=== PATIENT | female | born 1990 | race African-American/Black ===

== ENCOUNTER 2017-09-06 16:50 | Inpatient (IN) | payer MEDICARE, MEDICAID ==
[~2017-09-06] VITALS: Ht 157.5 cm; Wt 67.6 kg
[~2017-09-06 16:50] MED LIST: LATU80TA PO
[2017-09-06 16:59] VITALS: BP 134/83; PULSE 100; RESP 16; TEMP 98; O2SAT 100
--- NOTE | 2017-09-06 18:14 | PD ---
HPI Chief Complaint: Psychiatric Symptoms Time Seen by Provider: 17:27 Travel History International Travel<30 days: No Contact w/Intl Traveler<30days: No Traveled to known affect area: No History of Present Illness HPI Family brings the patient to the emergency department because her concern that she has not been taking her medication for the past 2 months for her schizophrenia. And that is causing her to be expressing herself online and ways that they are not accustomed to seeing from her. The family members brought a snapshot of her webpage in which she was stating "should I go ahead and sleep with everyone without having any feelings" with them, although she does not especially have any suicidal or homicidal ideation but has scattered thought processes. Particularly about conception as she is wondering if that is her true purpose in life. PFSH Past Medical History Asthma: Yes Diminished Hearing: No ?: Unknown : 0 Past Surgical History Surgical History: No Previous Surgery Social History Alcohol Use: Yes (OCC) Tobacco Use: No Substance Use: No Allergies-Medications (Allergen,Severity, Reaction): Coded Allergies: No Known Allergies (Unverified Allergy, Unknown, 09/07/17) Reported Meds & Prescriptions Reported Meds & Active Scripts Active Reported Abilify (Aripiprazole) 2 Mg Tab 2 Mg PO DAILY Seroquel (Quetiapine Fumarate) 25 Mg Tab 25 Mg PO BID Review of Systems General / Constitutional: No: Fever Eyes: No: Visual changes HENT: No: Headaches Cardiovascular: No: Chest Pain or Discomfort Respiratory: No: Shortness of Breath Gastrointestinal: No: Abdominal Pain Genitourinary: No: Dysuria Musculoskeletal: No: Pain Skin: No Rash Neurologic: No: Weakness Psychiatric: Positive: Disorder of Thought Endocrine: No: Polydipsia Hematologic/Lymphatic: No: Easy Bruising Physical Exam Narrative GENERAL: SKIN: Warm and dry. HEAD: Atraumatic. Normocephalic. EYES: Pupils equal and round. No scleral icterus. No injection or drainage. ENT: No nasal bleeding or discharge. Mucous membranes pink and moist. NECK: Trachea midline. No JVD. CARDIOVASCULAR: Regular rate and rhythm. RESPIRATORY: No accessory muscle use. Clear to auscultation. Breath sounds equal bilaterally. GASTROINTESTINAL: Abdomen soft, non-tender, nondistended. Hepatic and splenic margins not palpable. MUSCULOSKELETAL: Extremities without clubbing, cyanosis, or edema. No obvious deformities. NEUROLOGICAL: Awake and alert. No obvious cranial nerve deficits. Motor grossly within normal limits. Five out of 5 muscle strength in the arms and legs. Normal speech. PSYCHIATRIC: scattered thought process... Data Data Last Documented VS Vital Signs Date Time Temp Pulse Resp B/P (MAP) Pulse Ox O2 Delivery O2 Flow Rate FiO2 09/07/17 07:54 76 15 118/74 (89) 100 Room Air 09/06/17 16:59 98.0 Orders Orders Complete Blood Count With Diff (09/06/17 17:59) Comprehensive Metabolic Panel (09/06/17 17:59) Thyroid Stimulating Hormone (09/06/17 17:59) Basic Metabolic Panel (Bmp) (09/06/17 17:59) Urinalysis - C+S If Indicated (09/06/17 17:59) Ed Urine Pregnancytest Poc (09/06/17 17:59) Psych Screen (09/06/17 17:59) Drug Screen, Random Urine (09/06/17 17:59) Alcohol (Ethanol) (09/06/17 17:59) Diet Regular Basic (09/07/17 Breakfast) Aripiprazole (Abilify) (09/07/17 11:30) Quetiapine (Seroquel) (09/07/17 11:30) Admit Order (Ed Use Only) (09/07/17 ) Admit To Inpatient Psych (09/07/17 ) Vital Signs (Adult) MALINI.Q12H.E (09/07/17 11:45) Activity Oob Ad Karla (09/07/17 11:45) Level Of Observation (Psych) (09/07/17 11:45) Diet Regular Basic (09/07/17 Lunch) Acetaminophen (Tylenol) (09/07/17 11:45) Magnesium Hydroxide Liq (Milk Of Magnesi (09/07/17 11:45) Al-Mag Hy-Si 40-40-4 Mg/Ml Liq (Mag-Al P (09/07/17 11:45) Basic Metabolic Panel (Bmp) (09/08/17 06:00) Lipid Profile (09/08/17 06:00) Hemoglobin (Hgb) A1c (09/08/17 06:00) Labs Laboratory Tests Test 09/06/17 19:00 09/06/17 20:55 Urine Color YELLOW Urine Turbidity CLEAR Urine pH 7.0 Urine Specific [place] 1.035 Urine Protein 30 mg/dL Urine Glucose (UA) NEG mg/dL Urine Ketones NEG mg/dL Urine Occult Blood NEG Urine Nitrite NEG Urine Bilirubin NEG Urine Urobilinogen LESS THAN 2.0 MG/DL Urine Leukocyte Esterase NEG Urine RBC 1 /hpf Urine WBC 1 /hpf Urine Squamous Epithelial Cells 3 /hpf Urine Amorphous Sediment RARE Urine Mucus MANY /lpf Microscopic Urinalysis Comment CULT NOT INDICATED Urine Opiates Screen NEG Urine Barbiturates Screen NEG Urine Amphetamines Screen NEG Urine Benzodiazepines Screen NEG Urine Cocaine Screen NEG Urine Cannabinoids Screen NEG White Blood Count 10.7 TH/MM3 Red Blood Count 5.51 MIL/MM3 Hemoglobin 9.3 GM/DL Hematocrit 30.9 % Mean Corpuscular Volume 56.1 FL Mean Corpuscular Hemoglobin 17.0 PG Mean Corpuscular Hemoglobin Concent 30.2 % Red Cell Distribution Width 22.9 % Platelet Count 348 TH/MM3 Mean Platelet Volume 8.6 FL Neutrophils (%) (Auto) 86.8 % Lymphocytes (%) (Auto) 6.4 % Monocytes (%) (Auto) 5.7 % Eosinophils (%) (Auto) 0.5 % Basophils (%) (Auto) 0.6 % Neutrophils # (Auto) 9.3 TH/MM3 Lymphocytes # (Auto) 0.7 TH/MM3 Monocytes # (Auto) 0.6 TH/MM3 Eosinophils # (Auto) 0.1 TH/MM3 Basophils # (Auto) 0.1 TH/MM3 CBC Comment DIFF FINAL Differential Comment Blood Urea Nitrogen 10 MG/DL Creatinine 0.79 MG/DL Random Glucose 73 MG/DL Total Protein 9.4 GM/DL Albumin 4.1 GM/DL Calcium Level 9.4 MG/DL Alkaline Phosphatase 83 U/L Aspartate Amino Transf (AST/SGOT) 19 U/L Alanine Aminotransferase (ALT/SGPT) 14 U/L Total Bilirubin 0.3 MG/DL Sodium Level 140 MEQ/L Potassium Level 3.3 MEQ/L Chloride Level 106 MEQ/L Carbon Dioxide Level 23.5 MEQ/L Anion Gap 11 MEQ/L Estimat Glomerular Filtration Rate 106 ML/MIN Thyroid Stimulating Hormone 3rd Gen 1.360 uIU/ML Ethyl Alcohol Level LESS THAN 3 MG/DL MDM Medical Decision Making Medical Screen Exam Complete: Yes Emergency Medical Condition: Yes Medical Record Reviewed: Yes Differential Diagnosis hypoglycemia v electrolyte imbalance v anemia v thyroid abnl Narrative Course Patient agrees to stay as a voluntary, family members at bedside are also okay with the patient stating as a voluntary, as they want her to receive some help in restarting her medications and possibly someone to follow-up with for further adjustments of her medications. UA is negative for any UTI evidence Tox screen negative Diagnosis Primary Impression: medically cleared Kareem Carlson MD Sep 06, 2017 18:14
[2017-09-06 20:44] LABS: AMORPHOUS SEDIMENT, URINE RARE; BILIRUBIN, URINE NEG (NEG); BLOOD, URINE NEG (NEG); GLUCOSE,URINE NEG (NEG); KETONE, URINE NEG (NEG); MUCUS URINE MANY /lpf (OCC); NITRITE,URINE NEG (NEG); SQUAMOUS EPITHELIAL CELL URINE 3 /hpf (0-5); URINE COLOR YELLOW (YELLW/STRAW); URINE LEUKOCYTE ESTERASE NEG (NEG)
[2017-09-06 22:05] LABS: AUTOMATED NEUTROPHIL # 9.3 TH/MM3 (1.8-7.7); BASOPHIL # 0.1 TH/MM3 (0-0.2); BASOPHIL % 0.6 % (0.0-2.0); EOSINOPHIL # 0.1 TH/MM3 (0-0.4); EOSINOPHIL % 0.5 % (0.0-4.0); HEMATOCRIT 30.9 % (35.0-46.0); HEMOGLOBIN 9.3 GM/DL (11.6-15.3); LYMPH % 6.4 % (9.0-44.0); LYMPHOCYTE # 0.7 TH/MM3 (1.0-4.8); MEAN CELL VOLUME 56.1 FL (80.0-100.0); MEAN CORPUSCULAR HGB CONC 30.2 % (32.0-36.0); MEAN PLATELET VOLUME 8.6 FL (7.0-11.0); MONO % 5.7 % (0.0-8.0); MONOCYTE # 0.6 TH/MM3 (0-0.9); NEUT % 86.8 % (16.0-70.0); PLATELET COUNT 348 TH/MM3 (150-450); RED BLOOD COUNT 5.51 MIL/MM3 (4.00-5.30); RED CELL DISTRIBUTION WIDTH 22.9 % (11.6-17.2); WHITE BLOOD COUNT 10.7 TH/MM3 (4.0-11.0)
[2017-09-06 22:09] LABS: ALBUMIN 4.1 GM/DL (3.4-5.0); AST (GOT) 19 U/L (15-37); BICARBONATE 23.5 MEQ/L (21.0-32.0); CALCIUM 9.4 MG/DL (8.5-10.1); CHLORIDE 106 MEQ/L (98-107); CREATININE 0.79 MG/DL (0.50-1.00); GLOMERULAR FILTRATION RATE 106 ML/MIN (>89); GLUCOSE,RANDOM 73 MG/DL (74-106); SODIUM (NA) 140 MEQ/L (136-145)
[2017-09-06 22:10] LABS: BLOOD UREA NITROGEN 10 MG/DL (7-18)
[2017-09-06 22:18] LABS: ALKALINE PHOSPHATASE 83 U/L (45-117); ALT (GPT) 14 U/L (10-53); TOTAL BILIRUBIN ADULT 0.3 MG/DL (0.2-1.0); TOTAL PROTEIN 9.4 GM/DL (6.4-8.2)
[2017-09-07] MEDS ORDERED: SERO25TA PO (02:32)
[2017-09-07] MEDS ORDERED: ARIP2 PO (02:32)
[2017-09-07 07:54] VITALS: BP 118/74; PULSE 76; RESP 15; O2SAT 100
[2017-09-07] MEDS ORDERED: ARIPiprazole 2 MG TAB PO ONE (11:30)
[2017-09-07] MEDS: QUEtiapine FUMARATE 25 MG TAB PO ONE ×2 (11:30→12:28)
[2017-09-07] MEDS ORDERED: MAGNESIUM HYDROXIDE SUSP 30 ML CUP PO PRN (11:45)
[2017-09-07] MEDS ORDERED: ALUMINUM/MAGNESIUM/SIMETH 30 ML CUP PO PRN (11:45)
[2017-09-07] MEDS ORDERED: ACETAMINOPHEN 325 MG TAB PO PRN (11:45)
--- NOTE | 2017-09-07 11:45 | PD ---
History of Present Illness Chief Complaint: Schizophrenia Time Seen by Provider: 11:00 Travel History International Travel<30 Days: No Contact w/Intl Traveler<30days: No Known affected area: No Legal Status Legal Status: Voluntary History of Present Illness: This is a 26-year-old, single, -[place] female who was brought to this facility by her family he reports noncompliance with medication and concerning behaviors. Patient has been seen at this facility in the past however, she is typically managed at [facility]. Reviewed electronic medical record, labs, and discuss with staff. Patient was evaluated in her room in the main ED. Her sister was present per the patient's request. Patient found awake, alert, and oriented to self and place only. Her speech is clear and disorganized. She shows signs of internal stimulation and racing thoughts. She is a poor historian at this point as her thought process is tangential and disorganized. She went off on a tangent regarding the various definitions of cursing during the interview. Reproducing and his sexual activities seem to be a preoccupation at this time. Patient expresses some paranoia towards her family, and people on Facebook. Per the sister, patient was with her father who is her caregiver. Sister reports she was recently on long-acting injections but had begun to gain weight. Her father then advised that they could put her on pills and he would make sure that she checks them. They believe patient has been off of her medications for approximately 1 month now. They began noting bizarre comments on her Facebook page, she stopped sleeping, her appetite decreased, and she has been showing some paranoid delusions. The patient also reports some visual distortion saying that "the building look different, I thought we had to enter through the door further down". She denies any thoughts of self-harm, homicidal ideation, auditory hallucinations. However, there did appear to be some thought blocking present. Patient is pleasant and attempts to be cooperative with the evaluation however, she has trouble focusing long enough to answer questions appropriately. PFSH Past Medical History Asthma: Yes Diminished Hearing: No ?: Unknown : 0 Past Surgical History Surgical History: No Previous Surgery Psychiatric History Psychiatric History Inpatient admission at [facility]. Follows up outpatient at [facility]. Hx Psychiatric Treatment: DX WITH SCHIZOPHRENIA AT AGE 21. ADMITTED TO [facility] ONE, WAS UNABLE TO SAY WHEN BUT WAS THERE ABOUT A WEEK, VOLUNTARILY. REPORTS THAT SHE HAS NOT TAKING HER PRESCRIBED MEDS FOR 2-3 MONTHS. LIZ PHAM NP AN OUTPATIENT History of Inpatient Treatment: Yes Guns or firearms in home: No Social History Denies smoking tobacco, drinking alcohol and using illicit substances. Hx Alcohol Use: Yes (OCC) Hx Tobacco Use: No Hx Substance Use: No Hx of Substance Use Treatment: No Allergies-Medications (Allergen,Severity, Reaction): Coded Allergies: No Known Allergies (Unverified Adverse Reaction, Unknown, 09/06/17) Reported Meds & Prescriptions Reported Meds & Active Scripts Active Reported Abilify (Aripiprazole) 2 Mg Tab 2 Mg PO DAILY Seroquel (Quetiapine Fumarate) 25 Mg Tab 25 Mg PO BID Mental Status Examination Appearance: Appropriate, Well dressed/well groomed Consciousness: Alert Orientation: Person, Place (At least) Motor Activity: Other (Sitting on the stretcher) Speech: Rapid, Hesitant Language: Adequate Fund of Knowledge: Inadequate Attention and Concentration: Easily Distracted Memory: Impaired Mood: Appropriate, Good Affect: Flat Thought Process & Associations: Loose associations, Tangential Thought Content: Bizarre thinking, Thought blocking, Preoccupations (With reproducing), Delusional Hallucination Type: Auditory (Denies but appears to be internally stimulated with some possible thought blocking), Visual (Reports distortion buildings) Delusion Type: Paranoid (Believes people are posting derogatory things aimed at her on Facebook) Suicidal Ideation: No (There was a Facebook, that patient wrote in reference to her .) Suicidal Plan: No Suicidal Intention: No Homicidal Ideation: No Homicidal Plan: No Homicidal Intention: No Insight: Poor Judgment: Poor MDM Medical Decision Making Medical Record Reviewed: Yes Assessment/Plan This is a 26-year-old, single, -[place] female who is brought in by her family for being off of her medication and acting bizarre. Patient does have a history of schizophrenia and is treated outpatient at [facility]. Per her sister, patient has not taken her medications for approximately 1 month. She had been on a long-acting injectable but this is her states she began gaining weight and was put back on oral medications. Patient's thought processes clearly disorganized, tangential, and she is exhibiting signs of paranoid delusions. She reports that she has not been sleeping, her appetite has been decreased, and she has been experiencing visual distortions. She denies having suicidal ideation however, in a recent post on [employer] she did reference her . Patient does meet inpatient criteria at this time as she does not have the capacity to care for herself. If discharged I believe there is likelihood that she could be an imminent danger to herself. She will be admitted to the 2600 unit for further evaluation and stabilization. Orders Orders Complete Blood Count With Diff (09/06/17 17:59) Comprehensive Metabolic Panel (09/06/17 17:59) Thyroid Stimulating Hormone (09/06/17 17:59) Basic Metabolic Panel (Bmp) (09/06/17 17:59) Urinalysis - C+S If Indicated (09/06/17 17:59) Ed Urine Pregnancytest Poc (09/06/17 17:59) Psych Screen (09/06/17 17:59) Drug Screen, Random Urine (09/06/17 17:59) Alcohol (Ethanol) (09/06/17 17:59) Diet Regular Basic (09/07/17 Breakfast) Aripiprazole (Abilify) (09/07/17 11:30) Quetiapine (Seroquel) (09/07/17 11:30) Results Vital Signs Date Time Temp Pulse Resp B/P (MAP) Pulse Ox O2 Delivery O2 Flow Rate FiO2 09/07/17 07:54 76 15 118/74 (89) 100 Room Air 09/06/17 16:59 98.0 100 16 134/83 (100) 100 Laboratory Tests Test 09/06/17 19:00 09/06/17 20:55 Urine Color YELLOW Urine Turbidity CLEAR Urine pH 7.0 Urine Specific [place] 1.035 Urine Protein 30 Urine Glucose (UA) NEG Urine Ketones NEG Urine Occult Blood NEG Urine Nitrite NEG Urine Bilirubin NEG Urine Urobilinogen LESS THAN 2.0 Urine Leukocyte Esterase NEG Urine RBC 1 Urine WBC 1 Urine Squamous Epithelial Cells 3 Urine Amorphous Sediment RARE Urine Mucus MANY Microscopic Urinalysis Comment CULT NOT INDICATED Urine Opiates Screen NEG Urine Barbiturates Screen NEG Urine Amphetamines Screen NEG Urine Benzodiazepines Screen NEG Urine Cocaine Screen NEG Urine Cannabinoids Screen NEG White Blood Count 10.7 Red Blood Count 5.51 Hemoglobin 9.3 Hematocrit 30.9 Mean Corpuscular Volume 56.1 Mean Corpuscular Hemoglobin 17.0 Mean Corpuscular Hemoglobin Concent 30.2 Red Cell Distribution Width 22.9 Platelet Count 348 Mean Platelet Volume 8.6 Neutrophils (%) (Auto) 86.8 Lymphocytes (%) (Auto) 6.4 Monocytes (%) (Auto) 5.7 Eosinophils (%) (Auto) 0.5 Basophils (%) (Auto) 0.6 Neutrophils # (Auto) 9.3 Lymphocytes # (Auto) 0.7 Monocytes # (Auto) 0.6 Eosinophils # (Auto) 0.1 Basophils # (Auto) 0.1 CBC Comment DIFF FINAL Differential Comment Blood Urea Nitrogen 10 Creatinine 0.79 Random Glucose 73 Total Protein 9.4 Albumin 4.1 Calcium Level 9.4 Alkaline Phosphatase 83 Aspartate Amino Transf (AST/SGOT) 19 Alanine Aminotransferase (ALT/SGPT) 14 Total Bilirubin 0.3 Sodium Level 140 Potassium Level 3.3 Chloride Level 106 Carbon Dioxide Level 23.5 Anion Gap 11 Estimat Glomerular Filtration Rate 106 Thyroid Stimulating Hormone 3rd Gen 1.360 Ethyl Alcohol Level LESS THAN 3 Diagnosis Primary Impression: Schizophrenia Admitting Information Admitting Physician Requests: Admit aJnnette Boateng Sep 07, 2017 11:45
[2017-09-07 12:31] VITALS: BP 132/79; PULSE 83; RESP 15; O2SAT 100
--- NOTE | 2017-09-07 14:26 | PD ---
Data Data Last Documented VS Vital Signs Date Time Temp Pulse Resp B/P (MAP) Pulse Ox O2 Delivery O2 Flow Rate FiO2 09/07/17 07:54 76 15 118/74 (89) 100 Room Air 09/06/17 16:59 98.0 Orders Orders Complete Blood Count With Diff (09/06/17 17:59) Comprehensive Metabolic Panel (09/06/17 17:59) Thyroid Stimulating Hormone (09/06/17 17:59) Basic Metabolic Panel (Bmp) (09/06/17 17:59) Urinalysis - C+S If Indicated (09/06/17 17:59) Ed Urine Pregnancytest Poc (09/06/17 17:59) Psych Screen (09/06/17 17:59) Drug Screen, Random Urine (09/06/17 17:59) Alcohol (Ethanol) (09/06/17 17:59) Diet Regular Basic (09/07/17 Breakfast) Aripiprazole (Abilify) (09/07/17 11:30) Quetiapine (Seroquel) (09/07/17 11:30) Admit Order (Ed Use Only) (09/07/17 ) Admit To Inpatient Psych (09/07/17 ) Vital Signs (Adult) MALINI.Q12H.E (09/07/17 11:45) Activity Oob Ad Karla (09/07/17 11:45) Level Of Observation (Psych) (09/07/17 11:45) Diet Regular Basic (09/07/17 Lunch) Acetaminophen (Tylenol) (09/07/17 11:45) Magnesium Hydroxide Liq (Milk Of Magnesi (09/07/17 11:45) Al-Mag Hy-Si 40-40-4 Mg/Ml Liq (Mag-Al P (09/07/17 11:45) Basic Metabolic Panel (Bmp) (09/08/17 06:00) Lipid Profile (09/08/17 06:00) Hemoglobin (Hgb) A1c (09/08/17 06:00) Labs Laboratory Tests Test 09/06/17 19:00 09/06/17 20:55 Urine Color YELLOW Urine Turbidity CLEAR Urine pH 7.0 Urine Specific [place] 1.035 Urine Protein 30 mg/dL Urine Glucose (UA) NEG mg/dL Urine Ketones NEG mg/dL Urine Occult Blood NEG Urine Nitrite NEG Urine Bilirubin NEG Urine Urobilinogen LESS THAN 2.0 MG/DL Urine Leukocyte Esterase NEG Urine RBC 1 /hpf Urine WBC 1 /hpf Urine Squamous Epithelial Cells 3 /hpf Urine Amorphous Sediment RARE Urine Mucus MANY /lpf Microscopic Urinalysis Comment CULT NOT INDICATED Urine Opiates Screen NEG Urine Barbiturates Screen NEG Urine Amphetamines Screen NEG Urine Benzodiazepines Screen NEG Urine Cocaine Screen NEG Urine Cannabinoids Screen NEG White Blood Count 10.7 TH/MM3 Red Blood Count 5.51 MIL/MM3 Hemoglobin 9.3 GM/DL Hematocrit 30.9 % Mean Corpuscular Volume 56.1 FL Mean Corpuscular Hemoglobin 17.0 PG Mean Corpuscular Hemoglobin Concent 30.2 % Red Cell Distribution Width 22.9 % Platelet Count 348 TH/MM3 Mean Platelet Volume 8.6 FL Neutrophils (%) (Auto) 86.8 % Lymphocytes (%) (Auto) 6.4 % Monocytes (%) (Auto) 5.7 % Eosinophils (%) (Auto) 0.5 % Basophils (%) (Auto) 0.6 % Neutrophils # (Auto) 9.3 TH/MM3 Lymphocytes # (Auto) 0.7 TH/MM3 Monocytes # (Auto) 0.6 TH/MM3 Eosinophils # (Auto) 0.1 TH/MM3 Basophils # (Auto) 0.1 TH/MM3 CBC Comment DIFF FINAL Differential Comment Blood Urea Nitrogen 10 MG/DL Creatinine 0.79 MG/DL Random Glucose 73 MG/DL Total Protein 9.4 GM/DL Albumin 4.1 GM/DL Calcium Level 9.4 MG/DL Alkaline Phosphatase 83 U/L Aspartate Amino Transf (AST/SGOT) 19 U/L Alanine Aminotransferase (ALT/SGPT) 14 U/L Total Bilirubin 0.3 MG/DL Sodium Level 140 MEQ/L Potassium Level 3.3 MEQ/L Chloride Level 106 MEQ/L Carbon Dioxide Level 23.5 MEQ/L Anion Gap 11 MEQ/L Estimat Glomerular Filtration Rate 106 ML/MIN Thyroid Stimulating Hormone 3rd Gen 1.360 uIU/ML Ethyl Alcohol Level LESS THAN 3 MG/DL [facility] Supervised Visit with JOHN: Yes Narrative Course I was asked to see this patient for evaluation for possible Hopkins act, the patient initially presented for voluntary with her sister for admission for history of schizophrenia. She was to be admitted but on intake it was thought that the patient did not have an adequate understanding of her disease and therefore could not sign her own admission. On my examination the patient is very withdrawn, she states "I have problems because I have the mind of a child and an adult and I do not know what age I am supposed to talk to." The patient seems to be preoccupied on age and is asked me what my ages several times. She is highly tangential and difficult to stay on task. Very disorganized thought process. I agree I do not think that the patient has an adequate understanding of her disease process to sign involuntarily at this time. I do believe she is greatly disabled based on what her sister is told me about her low functioning at home. I have therefore determined that this patient meets Hopkins act criteria and I filled out the appropriate documentation. She is medically cleared for psychiatric admission and will be moved to the psychiatric burden under the psychiatric physicians care Diagnosis Primary Impression: Schizophrenia Admitting Information Admitting Physician Requests: Admit Condition: Stable Rodger Rosario MD Sep 07, 2017 14:26
[2017-09-07 15:16] VITALS: BP 155/90; PULSE 133; RESP 20; TEMP 97.8; O2SAT 100
[2017-09-08 06:21] VITALS: BP 139/75; PULSE 109; RESP 18; TEMP 97.5
--- NOTE | 2017-09-08 09:54 | HHI.HP ---
Provisional Diagnosis Admission Date Sep 07, 2017 at 11:48 Mobile I. 1. Schizophrenia, paranoid type, acute exacerbation Mobile II. Deferred Certification of Person's Competence To Provide Express and Informed Consent I have personally examined Paty Mchugh , a person being served at [facility] on, Sep 08, 2017 09:54. Express and informed consent means consent voluntarily given in writing, by a competent person, after sufficient explanation and disclosure of the subject matter involved to enable the person to make a knowing and willful decision without any element of force, fraud, deceit, duress, or other form of constraint or coercion. This person is 18 years of age or older, is not now known to be incompetent to consent to treatment with a guardian advocate, and does not have a health care surrogate or proxy currently making medical treatment decisions. I have found this person to be one of the following: [] Competent to provide express and informed consent, as defined above, for voluntary admission to this facility and is competent to provide express and informed consent for treatment. He/she has the consistent capacity to make well reasoned, willful, and knowing decisions concerning his or her medical or mental health treatment. The person fully and consistently understands the purpose of the admission for examination/placement and is fully capable of personally exercising all rights assured [place] [x] Incompetent to provide express and informed consent to voluntary admission, and this is incompetent to provide express and informed consent to treatment. The person must be transferred to involuntary status and a petition for a guardian advocate filed with the Circuit Court. [] Refusing to provide express and informed consent to voluntary admission but is competent to provide express and informed consent for treatment. The person must be discharged or transferred to involuntary status. Form shall be completed within 24 hours of a person's arrival at the receiving facility and filed in the clinical record of each person: 1. Admitted on a voluntary basis 2. Permitted to provide express and informed consent to his/her own treatment 3. Allowed to transfer from involuntary to voluntary status 4. Prior to permitting a person to consent to his or her own treatment after having been previously found incompetent to consent to treatment. History of Present Illness Capacity: Lacks Capacity Psych Chief Complaint: Psychosis HPI Ms. Mchugh is a 26-year-old female with a history of schizophrenia who was brought into the emergency department by family out of concern for medication nonadherence and decompensated psychosis. She was placed under a Hopkins act by the ED provider. She was seen in consultation by the psychiatric nurse practitioner in the ED. Documentation reviewed. Reviewing the electronic medical record, I see no previous psychiatric contact within our system. Patient seen and examined with nurse. Chart reviewed. Case discussed with nursing staff. On my examination today, the patient presents as disheveled. Speech is significantly delayed with obvious thought blocking. Eye contact is poor. She is paranoid and says that she does not want to give out too much information. She is evasive when I ask about SI/HI, saying "not really" and declining to elaborate when asked. Likewise, when I ask about AVH, she evades the question, noting "you're going to keep me longer." She appears frankly internally stimulated. Affect is quite flat. No reported depressive or hypomanic/manic symptoms. Psychiatric interview is limited because of decompensated psychotic illness. Patient is unable to provide any meaningful past psychiatric, family, chemical dependency or social history for the same reason. She does not verbalize any acute physical complaints. Given the patient's degree of psychiatric impairment, I did endeavor to obtain collateral from her father Cisco at the number listed in the EMR. He notes that he is not as well versed in patient's mental illness as his daughter Edith, patient's sister. He requests that I speak with Edith and defers HCS role to Eidth. I tried several times to reach Edith at number listed in EMR, which father assures me is the right number. This number keeps ringing until it finally disconnects on its own. There is no opportunity to leave a voicemail. Review of Systems ROS Limitations: Psychotic, Poor Historian Except as stated in HPI: all other systems reviewed are Neg Past Family Social History Coded Allergies: No Known Allergies (Unverified Allergy, Unknown, 09/07/17) Past Medical History See EMR. Reported Medications Aripiprazole (Abilify) 2 Mg Tab, 2 MG PO DAILY, #30 TAB 0 Refills 09/07/17 Quetiapine (Seroquel) 25 Mg Tab, 25 MG PO BID, #60 TAB 0 Refills 09/07/17 Discontinued Reported Medications Lurasidone Hcl (Latuda) 80 Mg Tab, 80 MG PO DAILY, TAB 11/25/13 Current Medications Medications (Trade) Dose Ordered Sig/Jojo Route Start Time Stop Time Status Last Admin (Tylenol) 650 mg Q4H PRN PO 09/07/17 11:45 09/07/17 21:33 (Milk Of Magnesia Liq) 30 ml DAILY PRN PO 09/07/17 11:45 (Mag-Al Plus Susp Liq) 30 ml Q6H PRN PO 09/07/17 11:45 Patient's Strengths (min. 2) In a monitored setting. Verbally fluent. Physical Exam Physical exam completed by ED provider. On my examination today, patient appears to be in no acute physical distress. No motor abnormalities noted. No posturing, no stereotypies, no other signs of catatonia. Labs and vitals reviewed: Vital Signs Vital Signs Date Time Temp Pulse Resp B/P (MAP) Pulse Ox O2 Delivery O2 Flow Rate FiO2 09/08/17 06:21 97.5 109 18 139/75 (96) 09/07/17 15:16 100 09/07/17 12:31 Room Air Lab Results Item Value Date Time White Blood Count 10.7 TH/MM3 09/06/172054 Hemoglobin 9.3 GM/DL L 09/06/172054 Platelet Count 348 TH/MM3 09/06/172054 Mean Corpuscular Volume 56.1 FL L 09/06/172054 Sodium Level 140 MEQ/L 09/06/172054 Potassium Level 3.3 MEQ/L L 09/06/172054 Chloride Level 106 MEQ/L 09/06/172054 Carbon Dioxide Level 23.5 MEQ/L 09/06/172054 Blood Urea Nitrogen 10 MG/DL 09/06/172054 Creatinine 0.79 MG/DL 09/06/172054 Estimat Glomerular Filtration Rate 106 ML/MIN 09/06/172054 Random Glucose 73 MG/DL L 09/06/172054 Aspartate Amino Transf (AST/SGOT) 19 U/L 09/06/172054 Alanine Aminotransferase (ALT/SGPT) 14 U/L 09/06/172054 Alkaline Phosphatase 83 U/L 09/06/172054 Thyroid Stimulating Hormone 3rd Gen 1.360 uIU/ML 09/06/172054 Urine Barbiturates Screen NEG 09/06/17 190 Urine Opiates Screen NEG 09/06/171899 Urine Amphetamines Screen NEG 09/06/171899 Urine Benzodiazepines Screen NEG 09/06/171899 Urine Cocaine Screen NEG 09/06/171899 Urine Cannabinoids Screen NEG 09/06/171899 Ethyl Alcohol Level LESS THAN 3 MG/DL 09/06/172054 Microcytic anemia noted. Hypokalemia noted and repleted. TSH within normal limits. Alcohol level undetectable. Urinalysis bland. ED [id number] test negative. EKG reveals sinus rhythm with a QTC of 401 ms, not prolonged. Mental Status Examination Appearance: Disheveled Consciousness: Alert, Vigilant Orientation: Person, Place (at least) Motor Activity: Normal gait, Other (no motor abnormalities noted) Speech: Hesitant Language: Adequate Attention and Concentration: Easily Distracted Memory: Impaired (psychosis interferes) Mood: Anxious Affect: Flat Thought Process & Associations: Linear (within delusions) Thought Content: Thought blocking, Delusional Hallucination Type: Other (responding to internal stimuli) Delusion Type: Paranoid Suicidal Ideation: No Suicidal Plan: No Suicidal Intention: No Homicidal Ideation: No Homicidal Plan: No Homicidal Intention: No Insight: Poor Judgment: Poor Assessment & Plan Problem List: (1) Schizophrenia ICD Codes: F20.9 - Schizophrenia, unspecified Status: Acute Assessment & Plan 26-year-old female with psychiatric history as detailed above who is presently admitted to the inpatient psychiatric unit under a Hopkins act. On my examination today, the patient appears to be experiencing decompensated psychosis in the setting of her schizophrenia, and this is likely secondary to medication nonadherence given report from the ED. Plan will be to admit the patient to the inpatient psychiatric unit for safety, observation and stabilization. Admit inpatient. Involuntary status. I have completed first opinion. Consult for second opinion. Request healthcare surrogate and guardian advocate. Psychotropic medications are presently on hold as father has deferred HCS role to sister Edith, and I have had no success in reaching Edith despite repeated efforts. Patient doubtless will require an antipsychotic and likely would benefit from an agent with an available long-acting injectable, such as Haldol or Prolixin. Replete K and recheck BMP and Mg in morning. Check iron studies and check CBC in morning to trend anemia. Vitals every shift. Counselor to see and obtain collateral. Disposition planning. Estimated length of stay: 7-9 days. Discharge Planning Pending psychiatric stabilization Request HC Surrog/Guard Advoc?: Yes Problem Qualifiers (1) Schizophrenia: Qualified Codes: F20.0 - Paranoid schizophrenia Jeff Xiong MD Sep 08, 2017 09:54
[2017-09-08] MEDS ORDERED: POTASSIUM CHLORIDE 10 MEQ CONTROLLED RELEASE TAB PO ONE (12:45)
[2017-09-08 14:25] LABS: IRON (FE) 18 MCG/DL (50-170)
[2017-09-08 14:28] LABS: % SATURATION IRON PROFILE 3.5 % (20-50); FERRITIN 4 NG/ML (8-252); TOTAL IRON BINDING CAPACITY 517 MCG/DL (250-450)
[2017-09-08] MEDS: FERROUS SULFATE 325 MG (65 MG ELEMENTAL IRON) TAB PO SCH (17:00)
[2017-09-08 18:31] VITALS: BP 119/84; PULSE 73; RESP 17; TEMP 97.8; O2SAT 97
[2017-09-08 20:58] LABS: BLOOD UREA NITROGEN 9 MG/DL (7-18); CALCIUM 8.9 MG/DL (8.5-10.1); CHLORIDE 103 MEQ/L (98-107); CREATININE 0.81 MG/DL (0.50-1.00); GLOMERULAR FILTRATION RATE 103 ML/MIN (>89); GLUCOSE,RANDOM 89 MG/DL (74-106); SODIUM (NA) 137 MEQ/L (136-145)
[2017-09-08 20:59] LABS: CHOLESTEROL 210 MG/DL (120-200); TRIGLYCERIDES 39 MG/DL (42-150)
[2017-09-08 21:01] LABS: HDL CHOLESTEROL 65.5 MG/DL (40.0-60.0); LDL CHOLESTEROL 137 MG/DL (0-99)
[2017-09-09 06:01] VITALS: BP 132/63; PULSE 85; RESP 18; TEMP 98; O2SAT 95
[2017-09-09] MEDS: QUEtiapine FUMARATE 25 MG TAB PO SCH ×2 (09:00→21:00)
[2017-09-09 11:18] LABS: AUTOMATED NEUTROPHIL # 6.4 TH/MM3 (1.8-7.7); BASOPHIL # 0.1 TH/MM3 (0-0.2); BASOPHIL % 1.4 % (0.0-2.0); EOSINOPHIL % 0.2 % (0.0-4.0); HEMATOCRIT 27.7 % (35.0-46.0); HEMOGLOBIN 8.3 GM/DL (11.6-15.3); LYMPH % 8.2 % (9.0-44.0); LYMPHOCYTE # 0.6 TH/MM3 (1.0-4.8); MEAN CORPUSCULAR HEMOGLOBIN 16.9 PG (27.0-34.0); MEAN CORPUSCULAR HGB CONC 30.1 % (32.0-36.0); MEAN PLATELET VOLUME 8.8 FL (7.0-11.0); MONO % 8.2 % (0.0-8.0); MONOCYTE # 0.6 TH/MM3 (0-0.9); PLATELET COUNT 297 TH/MM3 (150-450); RED BLOOD COUNT 4.94 MIL/MM3 (4.00-5.30); WHITE BLOOD COUNT 7.8 TH/MM3 (4.0-11.0)
[2017-09-09 11:58] LABS: BICARBONATE 23.2 MEQ/L (21.0-32.0); CALCIUM 9.1 MG/DL (8.5-10.1); CREATININE 0.73 MG/DL (0.50-1.00); MAGNESIUM 2.1 MG/DL (1.5-2.5)
[2017-09-09] MEDS: FERROUS SULFATE 325 MG (65 MG ELEMENTAL IRON) TAB PO SCH ×2 (12:00→14:49)
--- NOTE | 2017-09-09 15:13 | HHI.PYPN ---
Subjective Chief Complaint: Psychosis Remarks Patient initially admitted by Dr. Jeff Xiong, this H&P reviewed and agreed with. Dr. Xiong is also done first opinion petition supporting Hopkins act and is also requests a health care surrogate and guardian advocate. I have finished the admitting psychiatric template orders and did med reconciliation review. Patient seen by me in day room with nurse Niru, patient pacing back and forth with marked confused appearance, she is distractible appears to be responding to internal stimuli with significant thought blocking. She is also selectively mute. She also appears to be somewhat psychomotor retarded. I do agree with Dr. Xiong thus I'll cosign second opinion petition supporting Hopkins act I agree also patient does not have capacity and agree with health care surrogate and guardian advocate Review of Systems ROS Limitations: Clinical Condition, Altered Mental Status Mental Status Examination Appearance: Disheveled Consciousness: Alert, Vigilant Orientation: Person, Place (at least) Motor Activity: Normal gait, Other (no motor abnormalities noted) Speech: Hesitant Language: Adequate Attention and Concentration: Easily Distracted Memory: Impaired (psychosis interferes) Mood: Anxious Affect: Flat Thought Process & Associations: Linear (within delusions) Thought Content: Thought blocking, Delusional Hallucination Type: Other (responding to internal stimuli) Delusion Type: Paranoid Suicidal Ideation: No Suicidal Plan: No Suicidal Intention: No Homicidal Ideation: No Homicidal Plan: No Homicidal Intention: No Insight: Poor Judgment: Poor Results Labs Test 09/09/17 10:35 White Blood Count 7.8 TH/MM3 Red Blood Count 4.94 MIL/MM3 Hemoglobin 8.3 GM/DL Hematocrit 27.7 % Mean Corpuscular Volume 56.0 FL Mean Corpuscular Hemoglobin 16.9 PG Mean Corpuscular Hemoglobin Concent 30.1 % Red Cell Distribution Width 22.0 % Platelet Count 297 TH/MM3 Mean Platelet Volume 8.8 FL Neutrophils (%) (Auto) 82.0 % Lymphocytes (%) (Auto) 8.2 % Monocytes (%) (Auto) 8.2 % Eosinophils (%) (Auto) 0.2 % Basophils (%) (Auto) 1.4 % Neutrophils # (Auto) 6.4 TH/MM3 Lymphocytes # (Auto) 0.6 TH/MM3 Monocytes # (Auto) 0.6 TH/MM3 Eosinophils # (Auto) 0.0 TH/MM3 Basophils # (Auto) 0.1 TH/MM3 CBC Comment DIFF FINAL Differential Comment Blood Urea Nitrogen 7 MG/DL Creatinine 0.73 MG/DL Random Glucose 80 MG/DL Calcium Level 9.1 MG/DL Magnesium Level 2.1 MG/DL Sodium Level 138 MEQ/L Potassium Level 3.3 MEQ/L Chloride Level 106 MEQ/L Carbon Dioxide Level 23.2 MEQ/L Anion Gap 9 MEQ/L Estimat Glomerular Filtration Rate 117 ML/MIN Vitals/IOs Vital Signs Date Time Temp Pulse Resp B/P (MAP) Pulse Ox O2 Delivery O2 Flow Rate FiO2 09/09/17 06:01 98.0 85 18 132/63 (86) 95 09/07/17 12:31 Room Air Assessment & Plan Problem List: (1) Schizophrenia ICD Codes: F20.9 - Schizophrenia, unspecified Status: Acute Assessment & Plan Estimated LOS: days patient is quite psychotic the thought blocking and selectively mute. We need to attempt to find collateral information from any family members might be available in any family member that might be available to be health care surrogate Justification for Cont. Inpt. This time patient with decompensated placed in a lower level of care Discharge Planning To be determined Request HC Surrog/Guard Advoc?: Yes Problem Qualifiers (1) Schizophrenia: Qualified Codes: F20.0 - Paranoid schizophrenia Luis Wolf MD Sep 09, 2017 15:13
[2017-09-09] MEDS ORDERED: hydrOXYzine HCL 50 MG TAB PO PRN (15:15)
[2017-09-09 16:54] VITALS: BP 134/72; PULSE 87; RESP 18; TEMP 98; O2SAT 98
[2017-09-09 20:19] LABS: HEMOGLOBIN A1C 5.1 % (4.3-6.0)
[2017-09-09] MEDS: REMOVE OLD NICODERM (NICOTINE) PATCH T-DERMAL SCH (21:00)
--- NOTE | 2017-09-09 23:05 | EKG ---
Date Performed: 09/08/2017 Time Performed: 11:26:42 PTAGE: 26 years EKG: Sinus rhythm POSSIBLE LEFT ATRIAL ENLARGEMENT MODERATE T-WAVE ABNORMALITY ABNORMAL ECG NO PREVIOUS TRACING DOCTOR: Lynn Watkins Interpretating Date/Time 09/09/2017 23:04:52
[2017-09-10] MEDS ORDERED: LORazepam 2 MG/ML VIAL IM SCH (00:07)
[2017-09-10] MEDS ORDERED: HALOPERIDOL LACTATE 5 MG/ML AMP IM SCH (00:07)
[2017-09-10] MEDS ORDERED: LORazepam 2 MG/ML VIAL ONE (00:10)
[2017-09-10] MEDS ORDERED: HALOPERIDOL LACTATE 5 MG/ML AMP ONE (00:11)
[2017-09-10 05:53] VITALS: BP 140/93; PULSE 116; RESP 18; TEMP 98.3; O2SAT 96
[2017-09-10] MEDS ORDERED: ARIPiprazole 2 MG TAB PO SCH (09:00)
[2017-09-10] MEDS: NICOTINE 21 MG/24 HR PATCH T-DERMAL SCH (09:00)
--- NOTE | 2017-09-10 11:53 | HHI.PYPN ---
Subjective Chief Complaint: Psychosis Remarks Patient seen in her room with nurse Carmine, patient laying on mattress with covers pulled up to her chin. Patient staring at me with a frightened look on her face though she is nonverbal at the present time. Staff states she has been essentially nonverbal with them. I feel patient does not have capacity of Vicryl patient remains quite psychotic. Thus I'll offer Geodon 40 mg by mouth twice a day and she refuses that 10 mg IM in its place to give now with progression of health care surrogate/guardian advocate Review of Systems Except as stated in HPI: all other systems reviewed are Neg Mental Status Examination Appearance: Disheveled Consciousness: Alert, Vigilant Orientation: Person, Place (at least) Motor Activity: Normal gait, Other (no motor abnormalities noted) Speech: Hesitant Language: Adequate Attention and Concentration: Easily Distracted Memory: Impaired (psychosis interferes) Mood: Anxious Affect: Flat Thought Process & Associations: Linear (within delusions) Thought Content: Thought blocking, Delusional Hallucination Type: Other (responding to internal stimuli) Delusion Type: Paranoid Suicidal Ideation: No Suicidal Plan: No Suicidal Intention: No Homicidal Ideation: No Homicidal Plan: No Homicidal Intention: No Insight: Poor Judgment: Poor Results Vitals/IOs Vital Signs Date Time Temp Pulse Resp B/P (MAP) Pulse Ox O2 Delivery O2 Flow Rate FiO2 09/10/17 05:53 98.3 116 18 140/93 (109) 96 09/07/17 12:31 Room Air Assessment & Plan Problem List: (1) Schizophrenia ICD Codes: F20.9 - Schizophrenia, unspecified Status: Acute Assessment & Plan Estimated LOS: days patient remains quite psychotic and delusional, she is nonverbal at the present time. She medication adjustments above Justification for Cont. Inpt. At this time patient would decompensated placed in a lower level of care Discharge Planning To be determined Request HC Surrog/Guard Advoc?: Yes Problem Qualifiers (1) Schizophrenia: Qualified Codes: F20.0 - Paranoid schizophrenia Luis Wolf MD Sep 10, 2017 11:53
[2017-09-10] MEDS ORDERED: ZIPRASIDONE MESYLATE 20 MG VIAL IM PRN (12:00)
[2017-09-10] MEDS: FERROUS SULFATE 325 MG (65 MG ELEMENTAL IRON) TAB PO SCH ×2 (12:00→17:00)
[2017-09-10 17:00] VITALS: BP 126/73; PULSE 90; RESP 17; TEMP 98.1; O2SAT 100
[2017-09-10] MEDS ORDERED: ZIPRASIDONE HCL 40 MG CAP PO SCH (18:00)
[2017-09-10] MEDS: REMOVE OLD NICODERM (NICOTINE) PATCH T-DERMAL SCH (21:00)
[2017-09-10] MEDS: QUEtiapine FUMARATE 25 MG TAB PO SCH (21:00)
[2017-09-11 05:49] VITALS: BP 110/57; PULSE 73; RESP 16; TEMP 96.9; O2SAT 99
[2017-09-11] MEDS: NICOTINE 21 MG/24 HR PATCH T-DERMAL SCH (09:00)
--- NOTE | 2017-09-11 11:41 | HHI.PYPN ---
Subjective Chief Complaint: Psychosis Remarks Patient seen in dayroom floor staff, chart reviewed, patient discussed with nurse. Patient remains markedly distractible with thought blocking though she is vague about identifying auditory hallucinations. Is also some significant vigilance with her she is sitting away from any of the other patients on the unit. We did talk with patient's father who showed up at the medical receptionist today. He states she has seen Dr. Solorzano through [facility] and that she has been on Abilify and Abilify maintain an along with Seroquel to that facility. It appears the Abilify maintain was discontinued is causing patient to become more psychotic within a month or 2. Patient was seen in [facility] yesterday and health Association is [facility] after we will start patient on Abilify daily Seroquel at bedtime. With anticipation of on Abilify maintain first part next week Review of Systems Except as stated in HPI: all other systems reviewed are Neg Mental Status Examination Appearance: Disheveled Consciousness: Alert, Vigilant Orientation: Person, Place (at least) Motor Activity: Normal gait, Other (no motor abnormalities noted) Speech: Hesitant Language: Adequate Attention and Concentration: Easily Distracted Memory: Impaired (psychosis interferes) Mood: Anxious Affect: Flat Thought Process & Associations: Linear (within delusions) Thought Content: Thought blocking, Delusional Hallucination Type: Other (responding to internal stimuli) Delusion Type: Paranoid Suicidal Ideation: No Suicidal Plan: No Suicidal Intention: No Homicidal Ideation: No Homicidal Plan: No Homicidal Intention: No Insight: Poor Judgment: Poor Results Vitals/IOs Vital Signs Date Time Temp Pulse Resp B/P (MAP) Pulse Ox O2 Delivery O2 Flow Rate FiO2 09/11/17 05:49 96.9 73 16 110/57 (74) 99 09/07/17 12:31 Room Air Assessment & Plan Problem List: (1) Schizophrenia ICD Codes: F20.9 - Schizophrenia, unspecified Status: Acute Assessment & Plan Estimated LOS: days patient remains quite psychotic delusional thought blocking. We will start medication as mentioned above with permission of health care surrogate/guardian advocate Justification for Cont. Inpt. At this time patient would Sitter placed a lower level of care Discharge Planning To be determined perhaps some with father Request HC Surrog/Guard Advoc?: Yes Problem Qualifiers (1) Schizophrenia: Qualified Codes: F20.0 - Paranoid schizophrenia Luis Wolf MD Sep 11, 2017 11:41
[2017-09-11] MEDS: FERROUS SULFATE 325 MG (65 MG ELEMENTAL IRON) TAB PO SCH ×2 (12:00→17:13)
[2017-09-11] MEDS: REMOVE OLD NICODERM (NICOTINE) PATCH T-DERMAL SCH (20:37)
[2017-09-11] MEDS: QUEtiapine FUMARATE 25 MG TAB PO SCH (20:37)
[2017-09-11] MEDS: diphenhydrAMINE HCL 50 MG CAP PO PRN (20:38)
[2017-09-12 06:19] VITALS: BP 111/65; PULSE 84; RESP 16; TEMP 97.9; O2SAT 100
[2017-09-12] MEDS: NICOTINE 21 MG/24 HR PATCH T-DERMAL SCH (09:00)
[2017-09-12] MEDS: ARIPiprazole 15 MG TAB PO SCH (09:11)
[2017-09-12] MEDS: ATORVASTATIN 20 MG TAB PO SCH (09:11)
[2017-09-12] MEDS: FERROUS SULFATE 325 MG (65 MG ELEMENTAL IRON) TAB PO SCH ×2 (12:36→17:25)
--- NOTE | 2017-09-12 13:53 | HHI.PYPN ---
Subjective Chief Complaint: Psychosis Remarks Patient was seen and case discussed with nursing. Patient is quiet and reserved during the interview. She denies auditory or visual hallucinations. Could be responding to internal stimuli given delayed responses. Behaving well on the unit. Denies suicidal or homicidal ideation intent or plan Mental Status Examination Appearance: Disheveled Consciousness: Alert, Vigilant Orientation: Person, Place (at least) Motor Activity: Normal gait, Other (no motor abnormalities noted) Speech: Hesitant Language: Adequate Attention and Concentration: Easily Distracted Memory: Impaired (psychosis interferes) Mood: Anxious Affect: Flat Thought Process & Associations: Linear (within delusions) Thought Content: Thought blocking, Delusional Hallucination Type: Other (responding to internal stimuli) Delusion Type: Paranoid Suicidal Ideation: No Suicidal Plan: No Suicidal Intention: No Homicidal Ideation: No Homicidal Plan: No Homicidal Intention: No Insight: Poor Judgment: Poor Results Vitals/IOs Vital Signs Date Time Temp Pulse Resp B/P (MAP) Pulse Ox O2 Delivery O2 Flow Rate FiO2 09/12/17 06:19 97.9 84 16 111/65 (80) 100 Assessment & Plan Problem List: (1) Schizophrenia ICD Codes: F20.9 - Schizophrenia, unspecified Status: Acute Assessment & Plan Continue current treatment plan Justification for Cont. Inpt. Patient would decompensate in a less restrictive setting Request HC Surrog/Guard Advoc?: Yes Problem Qualifiers (1) Schizophrenia: Qualified Codes: F20.0 - Paranoid schizophrenia Maxwell Santamaria DO Sep 12, 2017 13:53
[2017-09-12] MEDS: REMOVE OLD NICODERM (NICOTINE) PATCH T-DERMAL SCH (21:00)
[2017-09-12] MEDS: QUEtiapine FUMARATE 25 MG TAB PO SCH (21:31)
[2017-09-12 22:15] VITALS: BP 124/58; PULSE 99; RESP 17; TEMP 98.2; O2SAT 96
[2017-09-13 05:42] VITALS: BP 102/60; PULSE 82; RESP 16; TEMP 98.2; O2SAT 99
[2017-09-13] MEDS: NICOTINE 21 MG/24 HR PATCH T-DERMAL SCH (09:00)
[2017-09-13] MEDS: ATORVASTATIN 20 MG TAB PO SCH (09:04)
[2017-09-13] MEDS: ARIPiprazole 15 MG TAB PO SCH (09:04)
--- NOTE | 2017-09-13 12:31 | HHI.PYPN ---
Subjective Chief Complaint: Psychosis Remarks Patient was seen and case discussed with nursing. Patient is having thought blocking and nonspontaneous speech today. She denies any stressors. Affect is blunted and apathetic. Compliant with medications. She has a feeling "in the back of my mind that somebody wants me." Mental Status Examination Appearance: Disheveled Consciousness: Alert, Vigilant Orientation: Person, Place (at least) Motor Activity: Normal gait, Other (no motor abnormalities noted) Speech: Hesitant Language: Adequate Attention and Concentration: Easily Distracted Memory: Impaired (psychosis interferes) Mood: Anxious Affect: Flat Thought Process & Associations: Linear (within delusions) Thought Content: Thought blocking, Delusional Hallucination Type: Other (responding to internal stimuli) Delusion Type: Paranoid Suicidal Ideation: No Suicidal Plan: No Suicidal Intention: No Homicidal Ideation: No Homicidal Plan: No Homicidal Intention: No Insight: Poor Judgment: Poor Results Vitals/IOs Vital Signs Date Time Temp Pulse Resp B/P (MAP) Pulse Ox O2 Delivery O2 Flow Rate FiO2 09/13/17 05:42 98.2 82 16 102/60 (74) 99 Assessment & Plan Problem List: (1) Schizophrenia ICD Codes: F20.9 - Schizophrenia, unspecified Status: Acute Assessment & Plan Continue current treatment plan Justification for Cont. Inpt. Patient will decompensate in a less restrictive setting Request HC Surrog/Guard Advoc?: Yes Problem Qualifiers (1) Schizophrenia: Qualified Codes: F20.0 - Paranoid schizophrenia Maxwell Santamaria DO Sep 13, 2017 12:31
[2017-09-13] MEDS: FERROUS SULFATE 325 MG (65 MG ELEMENTAL IRON) TAB PO SCH ×2 (13:01→17:56)
[2017-09-13 19:00] VITALS: BP 106/66; PULSE 80; RESP 16; TEMP 98.4; O2SAT 99
[2017-09-13] MEDS: REMOVE OLD NICODERM (NICOTINE) PATCH T-DERMAL SCH (21:00)
[2017-09-13] MEDS: diphenhydrAMINE HCL 50 MG CAP PO PRN (21:14)
[2017-09-13] MEDS: QUEtiapine FUMARATE 25 MG TAB PO SCH (21:15)
[2017-09-14 06:15] VITALS: BP 102/62; PULSE 66; RESP 16; TEMP 97.7; O2SAT 99
[2017-09-14] MEDS: ATORVASTATIN 20 MG TAB PO SCH (09:00)
[2017-09-14] MEDS: ARIPiprazole 15 MG TAB PO SCH (09:00)
[2017-09-14] MEDS: NICOTINE 21 MG/24 HR PATCH T-DERMAL SCH (09:00)
--- NOTE | 2017-09-14 09:17 | PD.TTN ---
Patient Problems 1. Discharge planning 2. Medication compliance 3. Knowledge deficit 4. Lack of coping skills Progress Toward Goals Provider Present: Dr. Cristian Wolf, Dr. Vinay Hassan Provider Input: 09/14/2017: No change Psychiatric Counselors Present: Liv Gna, [facility], Nishant Olvera Jr., [facility], Carmen Easley, [facility], Farheen Cordova, [facility] Group Spec/RT/OT/VALLE Present: AIME Barriga, Sarmad Rivera, OT, Other ( OT Range Aide) Group Spec/RT/OT/VALLE Input: Since Patients admission she has attended select group activities. Discharge Plan Counselor and Doctor working on discharge plan. Documentation Scribe: Melia Min Sep 14, 2017 09:17
--- NOTE | 2017-09-14 11:54 | HHI.PYPN ---
Subjective Chief Complaint: Psychosis Remarks Patient seen in [facility] with nurse Bree, chart reviewed, patient compliant medications, patient discussed with nurse. Patient continues calm cooperative, though there is still marked thought blocking with continued auditory hallucinations of a somewhat threatening nature. Patient somewhat vague today about any suicidality. Though she is been no behavioral problem. For now continue treatment will increase at bedtime Seroquel to 100 mg Review of Systems Except as stated in HPI: all other systems reviewed are Neg Mental Status Examination Appearance: Disheveled Consciousness: Alert, Vigilant Orientation: Person, Place (at least) Motor Activity: Normal gait, Other (no motor abnormalities noted) Speech: Hesitant Language: Adequate Attention and Concentration: Easily Distracted Memory: Impaired (psychosis interferes) Mood: Anxious Affect: Flat Thought Process & Associations: Linear (within delusions) Thought Content: Thought blocking, Delusional Hallucination Type: Other (responding to internal stimuli) Delusion Type: Paranoid Suicidal Ideation: No Suicidal Plan: No Suicidal Intention: No Homicidal Ideation: No Homicidal Plan: No Homicidal Intention: No Insight: Poor Judgment: Poor Results Vitals/IOs Vital Signs Date Time Temp Pulse Resp B/P (MAP) Pulse Ox O2 Delivery O2 Flow Rate FiO2 09/14/17 06:15 97.7 66 16 102/62 (75) 99 Assessment & Plan Problem List: (1) Schizophrenia ICD Codes: F20.9 - Schizophrenia, unspecified Status: Acute Assessment & Plan Estimated LOS: days patient continues psychotic delusional and paranoid, but she is compliant medications, no significant behavioral problems. For now continue treatment will increase at bedtime Seroquel to 100 mg Justification for Cont. Inpt. This time patient would decompensated placed on lower level of care Discharge Planning To be determined Request HC Surrog/Guard Advoc?: Yes Problem Qualifiers (1) Schizophrenia: Qualified Codes: F20.0 - Paranoid schizophrenia Luis Wolf MD Sep 14, 2017 11:54
[2017-09-14] MEDS: FERROUS SULFATE 325 MG (65 MG ELEMENTAL IRON) TAB PO SCH ×2 (11:58→17:00)
[2017-09-14 18:36] VITALS: BP 126/78; PULSE 77; RESP 18; TEMP 98.2; O2SAT 98
[2017-09-14] MEDS: REMOVE OLD NICODERM (NICOTINE) PATCH T-DERMAL SCH (21:00)
[2017-09-14] MEDS: QUEtiapine FUMARATE 100 MG TAB PO SCH (21:07)
[2017-09-15] MEDS: NICOTINE 21 MG/24 HR PATCH T-DERMAL SCH (08:43)
[2017-09-15] MEDS: ATORVASTATIN 20 MG TAB PO SCH (08:43)
[2017-09-15] MEDS: ARIPiprazole 15 MG TAB PO SCH ×2 (08:43→21:14)
[2017-09-15] MEDS: FERROUS SULFATE 325 MG (65 MG ELEMENTAL IRON) TAB PO SCH ×2 (11:33→16:49)
--- NOTE | 2017-09-15 12:14 | HHI.PYPN ---
Subjective Chief Complaint: Psychosis Remarks Patient seen in day room with nurse Bree, chart reviewed patient compliant medications, patient discussed with nurse. Patient continues markedly vigilant paranoid with thought blocking and significant auditory hallucinations. When asked about suicidality or patient would take the "suicide pill" she did not respond but appeared to be blessing over her right shoulder as if listening voice. She became more angry with me as I persisted and exploring the auditory hallucinations. Will increase Abilify to 15 mg twice a day will attempt to get supply of Abilify maintain a patient may benefit from that also Review of Systems Except as stated in HPI: all other systems reviewed are Neg Mental Status Examination Appearance: Disheveled Consciousness: Alert, Vigilant Orientation: Person, Place (at least) Motor Activity: Normal gait, Other (no motor abnormalities noted) Speech: Hesitant Language: Adequate Attention and Concentration: Easily Distracted Memory: Impaired (psychosis interferes) Mood: Anxious Affect: Flat Thought Process & Associations: Linear (within delusions) Thought Content: Thought blocking, Delusional Hallucination Type: Other (responding to internal stimuli) Delusion Type: Paranoid Suicidal Ideation: No Suicidal Plan: No Suicidal Intention: No Homicidal Ideation: No Homicidal Plan: No Homicidal Intention: No Insight: Poor Judgment: Poor Results Vitals/IOs Vital Signs Date Time Temp Pulse Resp B/P (MAP) Pulse Ox O2 Delivery O2 Flow Rate FiO2 09/14/17 18:36 98.2 77 18 126/78 (94) 98 Assessment & Plan Problem List: (1) Schizophrenia ICD Codes: F20.9 - Schizophrenia, unspecified Status: Acute Assessment & Plan Estimated LOS: days patient continues quite psychotic with auditory hallucinations significant thought blocking see medication adjustment above Justification for Cont. Inpt. At this point patient will decompensate and placed in a lower level of care Discharge Planning To be determined Request HC Surrog/Guard Advoc?: Yes Problem Qualifiers (1) Schizophrenia: Qualified Codes: F20.0 - Paranoid schizophrenia Luis Wolf MD Sep 15, 2017 12:14
[2017-09-15] MEDS ORDERED: HEPARIN-NS/PF FLUSH BAG 2,000 ML IV FLUSH ONE (15:06)
[2017-09-15] MEDS ORDERED: MIDAZOLAM HCL 2 MG/2 ML VIAL ONE (15:07)
[2017-09-15 18:31] VITALS: BP 132/64; PULSE 95; RESP 18; TEMP 98.5; O2SAT 98
[2017-09-15] MEDS: REMOVE OLD NICODERM (NICOTINE) PATCH T-DERMAL SCH (21:00)
[2017-09-15] MEDS: QUEtiapine FUMARATE 100 MG TAB PO SCH (21:14)
[2017-09-16 06:36] VITALS: BP 95/69; PULSE 93; RESP 18; TEMP 98; O2SAT 100
[2017-09-16] MEDS: NICOTINE 21 MG/24 HR PATCH T-DERMAL SCH (08:54)
[2017-09-16] MEDS: ARIPiprazole 15 MG TAB PO SCH ×2 (08:54→21:06)
[2017-09-16] MEDS: ATORVASTATIN 20 MG TAB PO SCH (08:54)
[2017-09-16] MEDS: FERROUS SULFATE 325 MG (65 MG ELEMENTAL IRON) TAB PO SCH ×2 (12:35→17:14)
--- NOTE | 2017-09-16 15:08 | HHI.PYPN ---
Subjective Chief Complaint: Psychosis Remarks Patient seen in day room with her staff, chart reviewed, patient compliant medications, patient discussed with nurse. Patient continues vigilant paranoid with significant thought blocking. Patient reluctant to talk with me through pleasure very short. For now continue treatment Review of Systems Except as stated in HPI: all other systems reviewed are Neg Mental Status Examination Appearance: Disheveled Consciousness: Alert, Vigilant Orientation: Person, Place (at least) Motor Activity: Normal gait, Other (no motor abnormalities noted) Speech: Hesitant Language: Adequate Attention and Concentration: Easily Distracted Memory: Impaired (psychosis interferes) Mood: Anxious Affect: Flat Thought Process & Associations: Linear (within delusions) Thought Content: Thought blocking, Delusional Hallucination Type: Other (responding to internal stimuli) Delusion Type: Paranoid Suicidal Ideation: No Suicidal Plan: No Suicidal Intention: No Homicidal Ideation: No Homicidal Plan: No Homicidal Intention: No Insight: Poor Judgment: Poor Results Vitals/IOs Vital Signs Date Time Temp Pulse Resp B/P (MAP) Pulse Ox O2 Delivery O2 Flow Rate FiO2 09/16/17 06:36 98.0 93 18 95/69 (78) 100 Assessment & Plan Problem List: (1) Schizophrenia ICD Codes: F20.9 - Schizophrenia, unspecified Status: Acute Assessment & Plan Estimated LOS: days patient continues psychotic thought blocking paranoia and auditory hallucinations Justification for Cont. Inpt. At this time patient will decompensate a placed a lower level of care Discharge Planning To be determined Request HC Surrog/Guard Advoc?: Yes Problem Qualifiers (1) Schizophrenia: Qualified Codes: F20.0 - Paranoid schizophrenia Luis Wolf MD Sep 16, 2017 15:08
[2017-09-16 16:44] VITALS: BP 130/62; PULSE 74; RESP 18
[2017-09-16] MEDS: REMOVE OLD NICODERM (NICOTINE) PATCH T-DERMAL SCH (21:00)
[2017-09-16] MEDS: QUEtiapine FUMARATE 100 MG TAB PO SCH (21:07)
[2017-09-17 05:38] VITALS: BP 93/49; PULSE 77; RESP 16; TEMP 98.1; O2SAT 100
[2017-09-17] MEDS: NICOTINE 21 MG/24 HR PATCH T-DERMAL SCH (09:00)
[2017-09-17] MEDS: ATORVASTATIN 20 MG TAB PO SCH (09:55)
[2017-09-17] MEDS: ARIPiprazole 15 MG TAB PO SCH ×2 (09:55→21:14)
--- NOTE | 2017-09-17 11:21 | HHI.PYPN ---
Subjective Chief Complaint: Psychosis Remarks Patient seen on the unit with floor staff, chart reviewed, patient compliant medication, patient discussed with nurse. Patient continues distracted with thought blocking and auditory hallucinations. The continue some reluctant agreement to outpatient treatment and medication compliance. Patient then brought to [facility] [facility] was seen [place] [address] with her sister and father. Patient's case was continued per [employer] [place] for 4 weeks. Sister to be health care surrogate. It appears this is patient's second or third day correct. She showed some noncompliance of medication. It appears she did fairly well on a monthly injection. But this family states that patient "blew up" "with weight well on the injectable. However this appeared to have help stabilize her mental health issues. For now will continue oral medication. Thus a medication adjustment yesterday we'll continue the dose Review of Systems Except as stated in HPI: all other systems reviewed are Neg Mental Status Examination Appearance: Disheveled Consciousness: Alert, Vigilant Orientation: Person, Place (at least) Motor Activity: Normal gait, Other (no motor abnormalities noted) Speech: Hesitant Language: Adequate Attention and Concentration: Easily Distracted Memory: Impaired (psychosis interferes) Mood: Anxious Affect: Flat Thought Process & Associations: Linear (within delusions) Thought Content: Thought blocking, Delusional Hallucination Type: Other (responding to internal stimuli) Delusion Type: Paranoid Suicidal Ideation: No Suicidal Plan: No Suicidal Intention: No Homicidal Ideation: No Homicidal Plan: No Homicidal Intention: No Insight: Poor Judgment: Poor Results Vitals/IOs Vital Signs Date Time Temp Pulse Resp B/P (MAP) Pulse Ox O2 Delivery O2 Flow Rate FiO2 09/17/17 05:38 98.1 77 16 93/49 (64) 100 Intake and Output 09/17/17 09/17/17 09/18/17 08:00 16:00 00:00 Intake Total 240 ml Balance 240 ml Assessment & Plan Problem List: (1) Schizophrenia ICD Codes: F20.9 - Schizophrenia, unspecified Status: Acute Assessment & Plan Estimated LOS: days patient continue psychotic with thought blocking marked delayed responses and auditory hallucinations. Patient [place] was delayed 4 weeks Justification for Cont. Inpt. At this time patient would decompensated place a lower level of care Discharge Planning Probable return home to family Request HC Surrog/Guard Advoc?: Yes Problem Qualifiers (1) Schizophrenia: Qualified Codes: F20.0 - Paranoid schizophrenia Luis Wolf MD Sep 17, 2017 11:21
[2017-09-17] MEDS: FERROUS SULFATE 325 MG (65 MG ELEMENTAL IRON) TAB PO SCH ×2 (12:33→17:00)
[2017-09-17 18:01] VITALS: BP 124/61; PULSE 86; RESP 18; TEMP 98.5; O2SAT 99
[2017-09-17] MEDS: REMOVE OLD NICODERM (NICOTINE) PATCH T-DERMAL SCH (21:00)
[2017-09-17] MEDS: QUEtiapine FUMARATE 100 MG TAB PO SCH (21:14)
[2017-09-18 06:14] VITALS: BP 117/63; PULSE 85; RESP 18; TEMP 97.9; O2SAT 100
[2017-09-18] MEDS: NICOTINE 21 MG/24 HR PATCH T-DERMAL SCH (09:00)
[2017-09-18] MEDS: ARIPiprazole 15 MG TAB PO SCH ×2 (09:10→21:23)
[2017-09-18] MEDS: ATORVASTATIN 20 MG TAB PO SCH (09:10)
[2017-09-18] MEDS: FERROUS SULFATE 325 MG (65 MG ELEMENTAL IRON) TAB PO SCH ×2 (12:00→17:00)
--- NOTE | 2017-09-18 14:55 | HHI.PYPN ---
Subjective Chief Complaint: Psychosis Remarks Patient seen in dayroom the floor staff, chart review, patient compliant medications, patient discussed with nurse. Patient continues to have slow responses with me she somewhat distracted and has mild thought blocking. She does denies suicidality at this time. For now will continue treatment increase at bedtime Seroquel to 200 mg Review of Systems Except as stated in HPI: all other systems reviewed are Neg Mental Status Examination Appearance: Disheveled Consciousness: Alert, Vigilant Orientation: Person, Place (at least) Motor Activity: Normal gait, Other (no motor abnormalities noted) Speech: Hesitant Language: Adequate Attention and Concentration: Easily Distracted Memory: Impaired (psychosis interferes) Mood: Anxious Affect: Flat Thought Process & Associations: Linear (within delusions) Thought Content: Thought blocking, Delusional Hallucination Type: Other (responding to internal stimuli) Delusion Type: Paranoid Suicidal Ideation: No Suicidal Plan: No Suicidal Intention: No Homicidal Ideation: No Homicidal Plan: No Homicidal Intention: No Insight: Poor Judgment: Poor Results Vitals/IOs Vital Signs Date Time Temp Pulse Resp B/P (MAP) Pulse Ox O2 Delivery O2 Flow Rate FiO2 09/18/17 06:14 97.9 85 18 117/63 (81) 100 Assessment & Plan Problem List: (1) Schizophrenia ICD Codes: F20.9 - Schizophrenia, unspecified Status: Acute Assessment & Plan Estimated LOS: days patient continue psychotic vague auditory hallucinations of thought blocking she medication adjustment above Justification for Cont. Inpt. This time patient decompensated placed on lower level of care Discharge Planning To be determined possible home with family Request HC Surrog/Guard Advoc?: Yes Problem Qualifiers (1) Schizophrenia: Qualified Codes: F20.0 - Paranoid schizophrenia Luis Wolf MD Sep 18, 2017 14:55
[2017-09-18 17:22] VITALS: BP 119/70; PULSE 104; RESP 17; TEMP 97.6; O2SAT 100
[2017-09-18] MEDS: REMOVE OLD NICODERM (NICOTINE) PATCH T-DERMAL SCH (21:00)
[2017-09-18] MEDS: QUEtiapine FUMARATE 100 MG TAB PO SCH (21:22)
[2017-09-19 06:23] VITALS: BP 149/66; PULSE 126; RESP 20; TEMP 97.7; O2SAT 100
[2017-09-19 06:30] VITALS: PULSE 78
[2017-09-19] MEDS: ATORVASTATIN 20 MG TAB PO SCH (09:00)
[2017-09-19] MEDS: ARIPiprazole 15 MG TAB PO SCH ×2 (09:00→22:15)
[2017-09-19] MEDS: NICOTINE 21 MG/24 HR PATCH T-DERMAL SCH (09:00)
[2017-09-19] MEDS ORDERED: POTASSIUM CHLORIDE 10 MEQ CONTROLLED RELEASE TAB PO ONE (11:45)
--- NOTE | 2017-09-19 11:50 | HHI.PYPN ---
Subjective Chief Complaint: Psychosis Remarks Reviewed electronic medical records, labs, discuss case with staff. Follow-up was performed in patient's room. Patient was found sleeping in bed she awoke to verbal stimuli. Patient appears internally stimulated with thought blocking. Her thought processes disorganized and tangential. Initially, she seemed to be describing some somatic leg and chest pain. However, after reviewing her labs this patient has had a potassium level of 3.3 over her past 3 lab draws. She was originally ordered potassium which she refused. I have ordered potassium and the nurse will try to give it to her with repeat CBC and CMP ordered for tomorrow morning. Although her thought process is still somewhat disorganized, she does seem to have shown improvement from her admission. She reports that she wants to be compliant with her medications and intends to. Tremors in her bilateral hands were noted during her assessment will continue to monitor those. Mental Status Examination Appearance: Disheveled Consciousness: Alert, Vigilant Orientation: Person, Place (at least) Motor Activity: Normal gait, Other (no motor abnormalities noted) Speech: Hesitant, Slow Language: Adequate Attention and Concentration: Easily Distracted Memory: Impaired (psychosis interferes) Mood: Anxious Affect: Flat Thought Process & Associations: Disorganized, Tangential Thought Content: Thought blocking, Delusional Hallucination Type: Other (responding to internal stimuli) Delusion Type: Paranoid Suicidal Ideation: No Suicidal Plan: No Suicidal Intention: No Homicidal Ideation: No Homicidal Plan: No Homicidal Intention: No Insight: Fair Judgment: Impulsive Results Vitals/IOs Vital Signs Date Time Temp Pulse Resp B/P (MAP) Pulse Ox O2 Delivery O2 Flow Rate FiO2 09/19/17 06:30 78 09/19/17 06:23 97.7 20 149/66 (93) 100 Assessment & Plan Problem List: (1) Schizophrenia ICD Codes: F20.9 - Schizophrenia, unspecified Status: Acute Assessment & Plan Estimated LOS: Patient continues to have internal stimulation and a disorganized thought process. Although some improvement is noted there is still room for improvement. We will continue to evaluate and treat per plan. Justification for Cont. Inpt. Moving this patient to a lower level of care would result in decompensation. She lacks the capacity at this time to provide sufficient self-care. Request HC Surrog/Guard Advoc?: Yes Problem Qualifiers (1) Schizophrenia: Qualified Codes: F20.0 - Paranoid schizophrenia Jannette Boateng Sep 19, 2017 11:50
[2017-09-19] MEDS: FERROUS SULFATE 325 MG (65 MG ELEMENTAL IRON) TAB PO SCH ×2 (12:00→17:00)
[2017-09-19 18:23] VITALS: BP 134/77; PULSE 114; RESP 17; TEMP 97.9; O2SAT 100
[2017-09-19] MEDS: REMOVE OLD NICODERM (NICOTINE) PATCH T-DERMAL SCH (21:00)
[2017-09-19] MEDS: QUEtiapine FUMARATE 100 MG TAB PO SCH (22:15)
[2017-09-20 06:19] VITALS: BP 112/62; PULSE 98; RESP 16; TEMP 97.7; O2SAT 100
[2017-09-20 08:26] LABS: AUTOMATED NEUTROPHIL # 4.8 TH/MM3 (1.8-7.7); BASOPHIL # 0.1 TH/MM3 (0-0.2); BASOPHIL % 0.8 % (0.0-2.0); EOSINOPHIL # 0.1 TH/MM3 (0-0.4); EOSINOPHIL % 1.4 % (0.0-4.0); HEMATOCRIT 29.4 % (35.0-46.0); HEMOGLOBIN 9.1 GM/DL (11.6-15.3); LYMPH % 30.5 % (9.0-44.0); LYMPHOCYTE # 2.4 TH/MM3 (1.0-4.8); MEAN CELL VOLUME 58.3 FL (80.0-100.0); MEAN CORPUSCULAR HEMOGLOBIN 18.1 PG (27.0-34.0); MEAN CORPUSCULAR HGB CONC 31.1 % (32.0-36.0); MEAN PLATELET VOLUME 8.8 FL (7.0-11.0); MONO % 4.6 % (0.0-8.0); MONOCYTE # 0.4 TH/MM3 (0-0.9); NEUT % 62.7 % (16.0-70.0); PLATELET COUNT 402 TH/MM3 (150-450); RED BLOOD COUNT 5.04 MIL/MM3 (4.00-5.30); RED CELL DISTRIBUTION WIDTH 24.4 % (11.6-17.2); WHITE BLOOD COUNT 7.7 TH/MM3 (4.0-11.0)
[2017-09-20 08:57] LABS: ALBUMIN 3.5 GM/DL (3.4-5.0); AST (GOT) 25 U/L (15-37); BICARBONATE 19.4 MEQ/L (21.0-32.0); BLOOD UREA NITROGEN 11 MG/DL (7-18); CHLORIDE 107 MEQ/L (98-107); CREATININE 0.75 MG/DL (0.50-1.00); GLOMERULAR FILTRATION RATE 113 ML/MIN (>89); GLUCOSE,RANDOM 53 MG/DL (74-106); SODIUM (NA) 139 MEQ/L (136-145)
[2017-09-20 08:58] LABS: ALKALINE PHOSPHATASE 74 U/L (45-117); ALT (GPT) 18 U/L (10-53); TOTAL BILIRUBIN ADULT 0.5 MG/DL (0.2-1.0); TOTAL PROTEIN 8.3 GM/DL (6.4-8.2)
[2017-09-20] MEDS: NICOTINE 21 MG/24 HR PATCH T-DERMAL SCH (09:00)
[2017-09-20] MEDS: ARIPiprazole 15 MG TAB PO SCH ×2 (09:24→22:05)
[2017-09-20] MEDS: ATORVASTATIN 20 MG TAB PO SCH (09:24)
[2017-09-20] MEDS: FERROUS SULFATE 325 MG (65 MG ELEMENTAL IRON) TAB PO SCH ×2 (12:00→17:00)
[2017-09-20 18:36] VITALS: BP 122/75; PULSE 92; RESP 16; TEMP 98; O2SAT 100
--- NOTE | 2017-09-20 18:40 | HHI.PYPN ---
Subjective Chief Complaint: Psychosis Remarks Reviewed electronic medical record, lab, and discussed case with staff. Patient 's potassium is within normal limits. Nurse advises patient has been refusing to eat today. Follow-up performed in patient's room with nurse present. Patient still appears to be internally stimulated with thought blocking present. She has has attempts to share some of her thoughts. She reports that she had a nightmare last night in which she was cutting herself which she states she has done in her teenage years. She seems more unkempt today and appears to have decompensated somewhat. Discussed with patient the importance of eating and drinking fluids. She was unable to adequately explain why she does not want to eat. She did tell the nurse earlier that it was something to do with her "blood pressure". Mental Status Examination Appearance: Disheveled Consciousness: Alert, Vigilant Orientation: Person, Place (at least) Motor Activity: Normal gait, Other (no motor abnormalities noted) Speech: Hesitant, Slow Language: Adequate Fund of Knowledge: Poor Attention and Concentration: Easily Distracted Memory: Impaired (psychosis interferes) Mood: Anxious Affect: Flat Thought Process & Associations: Disorganized, Tangential Thought Content: Thought blocking, Delusional Hallucination Type: Other (responding to internal stimuli) Delusion Type: Paranoid Suicidal Ideation: No Suicidal Plan: No Suicidal Intention: No Homicidal Ideation: No Homicidal Plan: No Homicidal Intention: No Insight: Poor Judgment: Poor Results Labs Test 09/20/17 07:52 White Blood Count 7.7 TH/MM3 Red Blood Count 5.04 MIL/MM3 Hemoglobin 9.1 GM/DL Hematocrit 29.4 % Mean Corpuscular Volume 58.3 FL Mean Corpuscular Hemoglobin 18.1 PG Mean Corpuscular Hemoglobin Concent 31.1 % Red Cell Distribution Width 24.4 % Platelet Count 402 TH/MM3 Mean Platelet Volume 8.8 FL Neutrophils (%) (Auto) 62.7 % Lymphocytes (%) (Auto) 30.5 % Monocytes (%) (Auto) 4.6 % Eosinophils (%) (Auto) 1.4 % Basophils (%) (Auto) 0.8 % Neutrophils # (Auto) 4.8 TH/MM3 Lymphocytes # (Auto) 2.4 TH/MM3 Monocytes # (Auto) 0.4 TH/MM3 Eosinophils # (Auto) 0.1 TH/MM3 Basophils # (Auto) 0.1 TH/MM3 CBC Comment DIFF FINAL Differential Comment Blood Urea Nitrogen 11 MG/DL Creatinine 0.75 MG/DL Random Glucose 53 MG/DL Total Protein 8.3 GM/DL Albumin 3.5 GM/DL Calcium Level 9.0 MG/DL Alkaline Phosphatase 74 U/L Aspartate Amino Transf (AST/SGOT) 25 U/L Alanine Aminotransferase (ALT/SGPT) 18 U/L Total Bilirubin 0.5 MG/DL Sodium Level 139 MEQ/L Potassium Level 3.8 MEQ/L Chloride Level 107 MEQ/L Carbon Dioxide Level 19.4 MEQ/L Anion Gap 13 MEQ/L Estimat Glomerular Filtration Rate 113 ML/MIN Vitals/IOs Vital Signs Date Time Temp Pulse Resp B/P (MAP) Pulse Ox O2 Delivery O2 Flow Rate FiO2 09/20/17 06:19 97.7 98 16 112/62 (79) 100 Assessment & Plan Problem List: (1) Schizophrenia ICD Codes: F20.9 - Schizophrenia, unspecified Status: Acute Assessment & Plan Estimated LOS: Patient's condition seems to have worsened since yesterday. She is now refusing to eat. We will continue with treatment plan as her Seroquel was just initiated 2 days ago. Days Justification for Cont. Inpt. Moving this patient to a lower level of care would result in decompensation. She lacks the capacity to provide self-care and would likely pose a danger to herself. Request HC Surrog/Guard Advoc?: Yes Problem Qualifiers (1) Schizophrenia: Qualified Codes: F20.0 - Paranoid schizophrenia Jannette Boateng Sep 20, 2017 18:40
[2017-09-20] MEDS: REMOVE OLD NICODERM (NICOTINE) PATCH T-DERMAL SCH (21:00)
[2017-09-20] MEDS: QUEtiapine FUMARATE 100 MG TAB PO SCH (22:07)
[2017-09-21 06:11] VITALS: BP 153/67; PULSE 107; RESP 16; TEMP 97.4; O2SAT 100
[2017-09-21] MEDS: NICOTINE 21 MG/24 HR PATCH T-DERMAL SCH (09:00)
[2017-09-21] MEDS: ATORVASTATIN 20 MG TAB PO SCH (09:28)
[2017-09-21] MEDS: ARIPiprazole 15 MG TAB PO SCH ×2 (09:28→22:20)
[2017-09-21] MEDS: FERROUS SULFATE 325 MG (65 MG ELEMENTAL IRON) TAB PO SCH ×2 (13:14→17:25)
--- NOTE | 2017-09-21 14:35 | HHI.PYPN ---
Subjective Chief Complaint: Psychosis Remarks Mental patient's sister and counselor Luly, sister feels patient doing somewhat better though still concerned about her touch with reality. The willingness to be compliance with medications. Also discussed placement both patient would go back home with her father. Sister also agrees that perhaps monthly injection might be beneficial. Patient then seen on unit with nurse Alma Delia, chart review, compliant medications. Patient continues with marked delays in responses she appears distracted often gazing off to her right her to her left. We'll consider addition of Abilify maintain a when supplies I received Review of Systems Except as stated in HPI: all other systems reviewed are Neg Mental Status Examination Appearance: Disheveled Consciousness: Alert, Vigilant Orientation: Person, Place (at least) Motor Activity: Normal gait, Other (no motor abnormalities noted) Speech: Hesitant, Slow Language: Adequate Fund of Knowledge: Poor Attention and Concentration: Easily Distracted Memory: Impaired (psychosis interferes) Mood: Anxious Affect: Flat Thought Process & Associations: Disorganized, Tangential Thought Content: Thought blocking, Delusional Hallucination Type: Other (responding to internal stimuli) Delusion Type: Paranoid Suicidal Ideation: No Suicidal Plan: No Suicidal Intention: No Homicidal Ideation: No Homicidal Plan: No Homicidal Intention: No Insight: Poor Judgment: Poor Results Vitals/IOs Vital Signs Date Time Temp Pulse Resp B/P (MAP) Pulse Ox O2 Delivery O2 Flow Rate FiO2 09/21/17 06:11 97.4 107 16 153/67 (95) 100 Intake and Output 09/21/17 09/21/17 09/22/17 08:00 16:00 00:00 Intake Total 360 ml Balance 360 ml Assessment & Plan Problem List: (1) Schizophrenia ICD Codes: F20.9 - Schizophrenia, unspecified Status: Acute Assessment & Plan Estimated LOS: days patient continue psychotic with thought blocking, markedly distracted, low compliant medications. Also admit to patient's sister who verify of mental mental illness history. For now continue treatment Justification for Cont. Inpt. At this time patient would decompensated placed in a lower level of care Discharge Planning Possible return home with family Request HC Surrog/Guard Advoc?: Yes Problem Qualifiers (1) Schizophrenia: Qualified Codes: F20.0 - Paranoid schizophrenia Luis Wolf MD Sep 21, 2017 14:35
[2017-09-21 14:38] VITALS: BP 146/100; PULSE 91; RESP 16; TEMP 98.2; O2SAT 91
--- NOTE | 2017-09-21 15:02 | EKG ---
Date Performed: 09/21/2017 Time Performed: 14:46:32 PTAGE: 26 years EKG: SINUS TACHYCARDIA POSSIBLE LEFT ATRIAL ENLARGEMENT POSSIBLE RIGHT VENTRICULAR CONDUCTION DE LAY ABNORMAL RHYTHM ECG Compared to prior electrocardiogram, Nonspecific ST and T wave abnormalities have resolved. PREVIOUS TRACING : 09/08/2017 11.26 DOCTOR: Jack Nixon Interpretating Date/Time 09/21/2017 15:01:12
--- NOTE | 2017-09-21 16:20 | PD.TTN ---
Patient Problems 1. Discharge planning 2. Medication compliance 3. Knowledge deficit 4. Lack of coping skills Progress Toward Goals Provider Present: Dr. Cristian Wolf, Dr. Vinay Hassan Provider Input: 09/21/17 - Patient remains psychotic. 09/14/2017: No change Psychiatric Counselors Present: Liv Gan, [facility], Nishant Olvera Jr., [facility], Carmen Easley, [facility], Farheen Cordova, [facility] Psych Therapist Input: 09/21/17 - Patient remains psychotic and continues to refuse to engage with this counselor. Group Spec/RT/OT/VALLE Present: Melia Stiles, GPS, Sarmad Rivera, OT, Other ( OT Dry Kiln Loader) Group Spec/RT/OT/VALLE Input: 09/21/17 - Patient is unable to tolerate group activities. 09/14/17 - Since Patients admission she has attended select group activities. Discharge Plan [facility] Counselor and Doctor working on discharge plan. Documentation Scribe: Farheen Cordova [facility]iz[facility] Sep 21, 2017 16:20
[2017-09-21 17:05] VITALS: BP 126/73; PULSE 83; RESP 18; O2SAT 100
[2017-09-21] MEDS: REMOVE OLD NICODERM (NICOTINE) PATCH T-DERMAL SCH (21:00)
[2017-09-21 22:00] VITALS: BP 131/76; PULSE 102; RESP 16; TEMP 98.4; O2SAT 100
[2017-09-21] MEDS: QUEtiapine FUMARATE 100 MG TAB PO SCH (22:20)
[2017-09-22 06:00] VITALS: BP 103/61; PULSE 133; RESP 15; TEMP 97.3; O2SAT 100
[2017-09-22] MEDS: ARIPiprazole 15 MG TAB PO SCH ×2 (08:40→20:32)
[2017-09-22] MEDS: NICOTINE 21 MG/24 HR PATCH T-DERMAL SCH (08:40)
[2017-09-22] MEDS: ATORVASTATIN 20 MG TAB PO SCH (08:40)
[2017-09-22 09:22] VITALS: BP 121/75; PULSE 96
[2017-09-22] MEDS ORDERED: PILL SPLITTER OTHER PRN (09:30)
[2017-09-22] MEDS: FERROUS SULFATE 325 MG (65 MG ELEMENTAL IRON) TAB PO SCH ×2 (13:05→20:32)
--- NOTE | 2017-09-22 14:14 | HHI.PYPN ---
Subjective Chief Complaint: Psychosis Remarks Reviewed electronic medical record and discussed case with staff. Follow-up was performed in day room. Patient declined to go to her room nurse was present. Patient seems little worse today than the last time I saw her. She continues to be internally stimulated. She tried to communicate with me through a modified sign language. I could not get her to explain why she did not want to talk today. Her nurse reports that she spoke with her earlier today and while she still experiences thought blocking she was able to communicate a logical manner. She did get up and ambulate to her room when the transportation technician showed up. Her gait was somewhat shuffling in her left foot seemed to toe inward. Mental Status Examination Appearance: Disheveled Consciousness: Alert, Vigilant Orientation: Person, Place (at least) Motor Activity: Normal gait, Other (no motor abnormalities noted) Speech: Other (Patient refused to talk attempted to communicate in a modified sign language) Language: Other (Would not speak) Fund of Knowledge: Poor Attention and Concentration: Easily Distracted Memory: Impaired (psychosis interferes) Mood: Anxious Affect: Flat Thought Process & Associations: Disorganized, Tangential Thought Content: Thought blocking, Delusional Hallucination Type: Other (responding to internal stimuli) Delusion Type: Paranoid Suicidal Ideation: No Suicidal Plan: No Suicidal Intention: No Homicidal Ideation: No Homicidal Plan: No Homicidal Intention: No Insight: Poor Judgment: Poor Results Labs Test 09/22/17 10:41 Troponin I LESS THAN 0.02 NG/ML Vitals/IOs Vital Signs Date Time Temp Pulse Resp B/P (MAP) Pulse Ox O2 Delivery O2 Flow Rate FiO2 09/22/17 09:22 96 121/75 (90) 09/22/17 06:00 97.3 15 100 Assessment & Plan Problem List: (1) Schizophrenia ICD Codes: F20.9 - Schizophrenia, unspecified Status: Acute Assessment & Plan Estimated LOS: Continue with treatment plan. Patient remains internally stimulated. She does not have the capacity to care for herself at this point. Days Justification for Cont. Inpt. Moving this patient to a lower level of care would result and decompensation. Request HC Surrog/Guard Advoc?: Yes Problem Qualifiers (1) Schizophrenia: Qualified Codes: F20.0 - Paranoid schizophrenia Jannette Boateng Sep 22, 2017 14:14
[2017-09-22 16:40] VITALS: BP 158/83; PULSE 130
--- NOTE | 2017-09-22 16:47 | PD.CONS ---
HPI Service [facility] Hospitalists Consult Requested By Psychiatric service Reason for Consult Tachycardia, uncontrolled BP Primary Care Physician Unknown Diagnoses: History of Present Illness This is a 26yo female with PMHX of paranoid schizophrenia and asthma admitted to inpatient psychiatry under Hopkins Act due to bizarre behavior and medication noncompliance. Reportedly, patient had not been taking her medications for several months. Hospitalist services have been consulted for evaluation and management of elevated heart rate and uncontrolled blood pressure. Patient seen today. She is not cooperative with history or exam today. She will only tell me she is being discharged today and is waiting on her paperwork. She will not answer any of my questions nor will she allow me to examine her. Discussed as much with nursing staff in psychiatry. Review of Systems Attempted 10 point review of systems but patient will not respond appropriately Past Family Social History Allergies: Coded Allergies: No Known Allergies (Unverified Allergy, Unknown, 09/07/17) Past Medical History Asthma Paranoid Schizophrenia Medication noncompliance Past Surgical History Per review of EMR, no previous surgery Reported Medications Abilify (Aripiprazole) 2 Mg Tab 2 Mg PO DAILY Seroquel (Quetiapine Fumarate) 25 Mg Tab 25 Mg PO BID Active Ordered Medications Current Medications Medications (Trade) Dose Ordered Sig/Jojo Route Start Time Stop Time Status Last Admin (Tylenol) 650 mg Q4H PRN PO 09/07/17 11:45 09/07/17 21:33 (Milk Of Magnesia Liq) 30 ml DAILY PRN PO 09/07/17 11:45 (Mag-Al Plus Susp Liq) 30 ml Q6H PRN PO 09/07/17 11:45 (Ferrous Sulfate) 325 mg BID@12,17 PO 09/08/17 17:00 09/22/17 13:05 (Benadryl) 50 mg HS PRN PO 09/09/17 21:00 09/13/17 21:14 (Habitrol 21 Mg Patch.24 Hr) 1 patch DAILY T-DERMAL 09/10/17 09:00 (Atarax) 50 mg Q6H PRN PO 09/09/17 15:15 Miscellaneous Information 1 HS T-DERMAL 09/09/17 21:00 (Lipitor) 20 mg DAILY PO 09/12/17 09:00 09/22/17 08:40 (Abilify) 15 mg BID PO 09/15/17 21:00 09/22/17 08:40 (SEROquel) 200 mg HS PO 09/18/17 21:00 09/21/17 22:20 (Ferrous Sulfate) 325 mg BID PO 09/22/17 21:00 (Vitamin C) 250 mg BID PO 09/22/17 21:00 (Pill Splitter) 1 ea UNSCH PRN OTHER 09/22/17 09:30 Family History Unknown Social History Per review of EMR, no tobacco use, occasional EtOH use, no illicit drug use. Physical Exam Vital Signs Vital Signs Date Time Temp Pulse Resp B/P (MAP) Pulse Ox O2 Delivery O2 Flow Rate FiO2 09/22/17 09:22 96 121/75 (90) 09/22/17 06:00 97.3 133 15 103/61 (75) 100 09/21/17 22:00 98.4 102 16 131/76 (94) 100 09/21/17 17:05 83 18 126/73 (90) 100 Physical Exam GENERAL: This is a well-nourished, well-developed young female patient, in no apparent distress. Awake and alert. Ambulating in the unit. Will not answers any of my questions appropriately - repitivelty tells me she is being discharged today. Refuses examination. Appears comfortable. SKIN: no obvious rashes or lesions. Ambulating unassisted with slow gait HEAD: Atraumatic. Normocephalic. EYES: No scleral icterus. No injection or drainage. ENT: Nose without bleeding or purulent drainage. Airway patent. CARDIOVASCULAR: Refused RESPIRATORY: Nonlabored. Refused auscultation GASTROINTESTINAL: Refused. MUSCULOSKELETAL: Extremities no obvious deformities. NEUROLOGICAL: Awake and alert. Ambulating in unit. PSYCHIATRIC: Appears preoccupied with own thoughts, flat affect. Uncooperative with physical exam. Laboratory Laboratory Tests Test 09/22/17 10:41 Troponin I LESS THAN 0.02 Result Diagram: 09/20/17 0752 09/20/17 0752 Assessment and Plan Assessment and Plan 26yo female with PMHX of paranoid schizophrenia and asthma admitted to inpatient psychiatry under [place] Act due to bizarre behavior and medication noncompliance. Reportedly, patient had not been taking her medications for several months. Hospitalist services have been consulted for evaluation and management of elevated heart rate and uncontrolled blood pressure. Paranoid schizophrenia - Management per psychiatric team Tachycardia Uncontrolled BP -single elevated BP 146/100, otherwise fairly well controlled -HR running mid 70s to 133. Patient is afebrile. O2 sats 100% on RA. -hgb low but stable, doubt contributing to elevated HR -TSH 1.360 -EKG shows sinus tachycardia -propranolol 10mg TID started with holding parameters -monitor CHANTELL -hgb low but stable -iron 18, TIBC 517, %sat 3.5, ferritin 4 -start on iron supplementation BID with vitamin C DVT prophylaxis -patient is ambulatory Patient appears stable from hospitalist standpoint. [facility] will sign off for now. Please reconsult if needed. Discussed Condition With patient, nursing staff, Dr. Kimberly Cooley,Jaylene PRIETO Sep 22, 2017 16:47
[2017-09-22] MEDS ORDERED: BENZTROPINE MESYLATE 1 MG TAB PO ONE (17:00)
[2017-09-22] MEDS ORDERED: LORazepam 1 MG TAB PO ONE (17:00)
[2017-09-22 18:27] VITALS: BP 158/83; PULSE 132; RESP 17; TEMP 97.4; O2SAT 99
[2017-09-22 18:38] VITALS: BP 132/84; PULSE 118; RESP 17; TEMP 98.2; O2SAT 98
[2017-09-22] MEDS ORDERED: PROPRANOLOL HCL 10 MG TAB PO ONE (19:00)
[2017-09-22] MEDS: QUEtiapine FUMARATE 100 MG TAB PO SCH (20:32)
[2017-09-22] MEDS: ASCORBIC ACID 500 MG TAB PO SCH (20:33)
[2017-09-22] MEDS: REMOVE OLD NICODERM (NICOTINE) PATCH T-DERMAL SCH (20:33)
[2017-09-22] MEDS: PROPRANOLOL HCL 10 MG TAB PO SCH (21:49)
[2017-09-22 21:59] VITALS: BP 120/79; PULSE 99; RESP 14; TEMP 97.5; O2SAT 95
[2017-09-23 05:58] VITALS: BP 139/82; PULSE 93; RESP 18; TEMP 97.5
[2017-09-23] MEDS: PROPRANOLOL HCL 10 MG TAB PO SCH ×3 (06:00→21:13)
[2017-09-23] MEDS: NICOTINE 21 MG/24 HR PATCH T-DERMAL SCH (09:00)
[2017-09-23] MEDS: ASCORBIC ACID 500 MG TAB PO SCH ×2 (09:00→21:13)
[2017-09-23] MEDS: ARIPiprazole 15 MG TAB PO SCH ×2 (09:05→21:13)
[2017-09-23] MEDS: FERROUS SULFATE 325 MG (65 MG ELEMENTAL IRON) TAB PO SCH ×2 (09:05→21:13)
[2017-09-23] MEDS: ATORVASTATIN 20 MG TAB PO SCH (09:05)
--- NOTE | 2017-09-23 11:27 | PD.TTN ---
Patient Problems 1. Discharge planning 2. Medication compliance 3. Knowledge deficit 4. Lack of coping skills Progress Toward Goals Provider Present: Dr. Cristian Wolf, Dr. Vinay Hassan Provider Input: 09/23/17 - Patient remains psychotic and paranoid. 09/21/17 - Patient remains psychotic. 09/14/2017: No change Psychiatric Counselors Present: Liv Gan, [facility], Nishant Olvera Jr., [facility], Carmen Easley, [facility], Farheen Cordova [facility] Psych Therapist Input: 09/23/17 - Patient continues to refuse to speak to this counselor. 09/21/17 - Patient remains psychotic and continues to refuse to engage with this counselor. Group Spec/RT/OT/VALLE Present: Sarmad Rivera OT, Other (OT Eyeglass Fitter) Group Spec/RT/OT/VALLE Input: 09/23/17 - Patient is unable to tolerate groups for long periods of time. 09/21/17 - Patient is unable to tolerate group activities. 09/14/17 - Since Patients admission she has attended select group activities. Discharge Plan [facility] Counselor and Doctor working on discharge plan. Documentation Scribe: AVANI Chacon Date Resolved: Sep 23, 2017 Farheen Cordova Sep 23, 2017 11:27
--- NOTE | 2017-09-23 14:52 | HHI.PYPN ---
Subjective Chief Complaint: Psychosis Remarks Patient seen in [place] with floor staff, chart reviewed, patient compliant medication, patient discussed with nurse. Patient continues distracted acknowledging with maybe noted to hallucinations of a spirit talking to work. There is a somewhat of a severe frontal overtone with her statements. For now continue treatment Review of Systems Except as stated in HPI: all other systems reviewed are Neg Mental Status Examination Appearance: Disheveled Consciousness: Alert, Vigilant Orientation: Person, Place (at least) Motor Activity: Normal gait, Other (no motor abnormalities noted) Speech: Other (Patient refused to talk attempted to communicate in a modified sign language) Language: Other (Would not speak) Fund of Knowledge: Poor Attention and Concentration: Easily Distracted Memory: Impaired (psychosis interferes) Mood: Anxious Affect: Flat Thought Process & Associations: Disorganized, Tangential Thought Content: Thought blocking, Delusional Hallucination Type: Other (responding to internal stimuli) Delusion Type: Paranoid Suicidal Ideation: No Suicidal Plan: No Suicidal Intention: No Homicidal Ideation: No Homicidal Plan: No Homicidal Intention: No Insight: Poor Judgment: Poor Results Vitals/IOs Vital Signs Date Time Temp Pulse Resp B/P (MAP) Pulse Ox O2 Delivery O2 Flow Rate FiO2 09/23/17 05:58 97.5 93 18 139/82 (101) 09/22/17 21:59 95 Assessment & Plan Problem List: (1) Schizophrenia ICD Codes: F20.9 - Schizophrenia, unspecified Status: Acute Assessment & Plan Estimated LOS: days patient continue psychotic somewhat delusional with auditory hallucinations. She is compliant medication. For now continue treatment Justification for Cont. Inpt. At this time patient decompensated placed in a lower level of care Discharge Planning To be determined Request HC Surrog/Guard Advoc?: Yes Problem Qualifiers (1) Schizophrenia: Qualified Codes: F20.0 - Paranoid schizophrenia Luis Wolf MD Sep 23, 2017 14:52
[2017-09-23 17:09] VITALS: BP 109/77; PULSE 78; RESP 17; TEMP 96.9; O2SAT 99
[2017-09-23] MEDS: REMOVE OLD NICODERM (NICOTINE) PATCH T-DERMAL SCH (21:00)
[2017-09-23] MEDS: QUEtiapine FUMARATE 100 MG TAB PO SCH (21:13)
--- NOTE | 2017-09-23 21:36 | EKG ---
Date Performed: 09/22/2017 Time Performed: 14:07:18 PTAGE: 26 years EKG: SINUS TACHYCARDIA NONSPECIFIC T-WAVE ABNORMALITY ABNORMAL RHYTHM ECG PREVIOUS TRACING : 09/21/2017 14.46 Since the previous tracing, no significant change noted DOCTOR: Benjamin Julien Interpretating Date/Time 09/23/2017 21:34:55
[2017-09-24] MEDS: diphenhydrAMINE HCL 50 MG CAP PO PRN (01:22)
[2017-09-24 05:56] VITALS: BP 115/56; PULSE 71; RESP 18; TEMP 97.7; O2SAT 100
[2017-09-24] MEDS: PROPRANOLOL HCL 10 MG TAB PO SCH ×3 (06:12→21:04)
[2017-09-24] MEDS: NICOTINE 21 MG/24 HR PATCH T-DERMAL SCH (07:36)
[2017-09-24] MEDS: ASCORBIC ACID 500 MG TAB PO SCH ×2 (09:30→21:00)
[2017-09-24] MEDS: FERROUS SULFATE 325 MG (65 MG ELEMENTAL IRON) TAB PO SCH ×2 (09:30→21:05)
[2017-09-24] MEDS: ATORVASTATIN 20 MG TAB PO SCH (09:30)
[2017-09-24] MEDS: ARIPiprazole 15 MG TAB PO SCH ×2 (09:30→21:05)
--- NOTE | 2017-09-24 11:23 | HHI.PYPN ---
Subjective Chief Complaint: Psychosis Remarks Patient seen in day room with nurse Akanksha, chart review, patient compliant medications, patient discussed with nurse. Patient somewhat calmer though still intrusive somewhat confusing look on her face. There remains thought blocking, she appears distracted she is vague about auditory hallucinations though she appears to be responding to internal stimuli. She is otherwise no behavior problem. Review of Systems Except as stated in HPI: all other systems reviewed are Neg Mental Status Examination Appearance: Disheveled Consciousness: Alert, Vigilant Orientation: Person, Place (at least) Motor Activity: Normal gait, Other (no motor abnormalities noted) Speech: Other (Patient refused to talk attempted to communicate in a modified sign language) Language: Other (Would not speak) Fund of Knowledge: Poor Attention and Concentration: Easily Distracted Memory: Impaired (psychosis interferes) Mood: Anxious Affect: Flat Thought Process & Associations: Disorganized, Tangential Thought Content: Thought blocking, Delusional Hallucination Type: Other (responding to internal stimuli) Delusion Type: Paranoid Suicidal Ideation: No Suicidal Plan: No Suicidal Intention: No Homicidal Ideation: No Homicidal Plan: No Homicidal Intention: No Insight: Poor Judgment: Poor Results Vitals/IOs Vital Signs Date Time Temp Pulse Resp B/P (MAP) Pulse Ox O2 Delivery O2 Flow Rate FiO2 09/24/17 05:56 97.7 71 18 115/56 (75) 100 Assessment & Plan Problem List: (1) Schizophrenia ICD Codes: F20.9 - Schizophrenia, unspecified Status: Acute Assessment & Plan Estimated LOS: days patient remained psychotic intrusive with little insight. Compliant medications Justification for Cont. Inpt. At this time patient will decompensate and placed on the lower level of care Discharge Planning To be determined Request HC Surrog/Guard Advoc?: Yes Problem Qualifiers (1) Schizophrenia: Qualified Codes: F20.0 - Paranoid schizophrenia Luis Wolf MD Sep 24, 2017 11:23
[2017-09-24 12:47] VITALS: BP 119/68; PULSE 80
[2017-09-24 18:00] VITALS: BP 129/71; PULSE 74; RESP 18; TEMP 98; O2SAT 100
[2017-09-24] MEDS: REMOVE OLD NICODERM (NICOTINE) PATCH T-DERMAL SCH (21:00)
[2017-09-24] MEDS: QUEtiapine FUMARATE 100 MG TAB PO SCH (21:04)
[2017-09-25 05:33] VITALS: BP 137/60; PULSE 82; RESP 16; TEMP 97.6; O2SAT 100
[2017-09-25] MEDS: PROPRANOLOL HCL 10 MG TAB PO SCH ×3 (06:09→21:54)
[2017-09-25] MEDS: NICOTINE 21 MG/24 HR PATCH T-DERMAL SCH (09:00)
[2017-09-25] MEDS: FERROUS SULFATE 325 MG (65 MG ELEMENTAL IRON) TAB PO SCH ×2 (10:44→21:44)
[2017-09-25] MEDS: ARIPiprazole 15 MG TAB PO SCH ×2 (10:46→21:53)
[2017-09-25] MEDS: ATORVASTATIN 20 MG TAB PO SCH (10:48)
[2017-09-25] MEDS: ASCORBIC ACID 500 MG TAB PO SCH ×2 (10:53→21:44)
[2017-09-25] MEDS ORDERED: BISACODYL EC 5 MG TABEC PO PRN (14:45)
--- NOTE | 2017-09-25 15:07 | HHI.PYPN ---
Subjective Chief Complaint: Psychosis Remarks Reviewed electronic medical record and discussed case with staff. Follow-up was performed in patient's room with nurse present. Patient was found in day room and ambulated to her room without difficulty. Patient's mood is good and her affect is euthymic. Today, her speech is clear, logical, and organized. She does not seem as internally stimulated today and her speech has a more normal grazyna. She still reports having "chest pain" after taking her medications and staff advised that she complained of leg pain last night. I have a call out to the hospitalist group to have them check if patient possibly is suffering from GERD. Seeing as she is on an iron supplement this could be an exacerbating factor. Additionally, will ask them to recheck her potassium level as she came in with hypokalemia which an oral supplement corrected. Patient does show improvement today. She reports that her family should be by to visit this weekend, advised patient that Dr. Wolf would reassess the situation on Thursday. Mental Status Examination Appearance: Disheveled Consciousness: Alert, Vigilant Orientation: Person, Place (at least) Motor Activity: Normal gait, Other (no motor abnormalities noted) Speech: Unremarkable Language: Adequate, Other (Would not speak) Fund of Knowledge: Adequate, Poor Attention and Concentration: Adequate Memory: Impaired (psychosis interferes) Mood: Appropriate, Good Affect: Appropriate, Euthymic Thought Process & Associations: Intact, Logical Thought Content: Appropriate Hallucination Type: None, Other (responding to internal stimuli) Delusion Type: None, Paranoid Suicidal Ideation: No Suicidal Plan: No Suicidal Intention: No Homicidal Ideation: No Homicidal Plan: No Homicidal Intention: No Insight: Fair Judgment: Impulsive Results Vitals/IOs Vital Signs Date Time Temp Pulse Resp B/P (MAP) Pulse Ox O2 Delivery O2 Flow Rate FiO2 09/25/17 05:33 97.6 82 16 137/60 (85) 100 Assessment & Plan Problem List: (1) Schizophrenia ICD Codes: F20.9 - Schizophrenia, unspecified Status: Acute Assessment & Plan Estimated LOS: Patient shows some improvement today in her mood and affect. No apparent internal stimulation or thought blocking is noted today. We will continue with treatment plan as ordered. She continues with her somatic complaints of chest pain with taking her medications and leg cramps, will again consult with the hospitalist. Days Justification for Cont. Inpt. Cautiously optimistic that patient is showing some signs of improvement. Moving her to a lower level of care at this time would likely result in a decompensation. Will reassess on Thursday after visitation with family over the weekend to see how they feel she is doing. Request HC Surrog/Guard Advoc?: Yes Problem Qualifiers (1) Schizophrenia: Qualified Codes: F20.0 - Paranoid schizophrenia Jannette Boateng Sep 25, 2017 15:07
[2017-09-25] MEDS: PANTOPRAZOLE SOD 40 MG DELAYED RELEASE TAB PO SCH (16:13)
[2017-09-25 16:40] LABS: ALBUMIN 3.8 GM/DL (3.4-5.0); ALT (GPT) 25 U/L (10-53); AST (GOT) 17 U/L (15-37); BICARBONATE 28.4 MEQ/L (21.0-32.0); BLOOD UREA NITROGEN 7 MG/DL (7-18); CALCIUM 9.6 MG/DL (8.5-10.1); CHLORIDE 108 MEQ/L (98-107); CREATININE 0.92 MG/DL (0.50-1.00); GLOMERULAR FILTRATION RATE 89 ML/MIN (>89); GLUCOSE,RANDOM 89 MG/DL (74-106); SODIUM (NA) 143 MEQ/L (136-145)
[2017-09-25 16:42] LABS: ALKALINE PHOSPHATASE 75 U/L (45-117); TOTAL BILIRUBIN ADULT 0.2 MG/DL (0.2-1.0); TOTAL PROTEIN 8.7 GM/DL (6.4-8.2)
[2017-09-25 17:34] VITALS: BP 119/83; PULSE 90; RESP 17; TEMP 98.1; O2SAT 100
[2017-09-25] MEDS: REMOVE OLD NICODERM (NICOTINE) PATCH T-DERMAL SCH (21:00)
[2017-09-25] MEDS: QUEtiapine FUMARATE 100 MG TAB PO SCH (21:44)
[2017-09-25 21:50] VITALS: BP 118/64; PULSE 80
[2017-09-26 05:50] VITALS: BP 115/59; PULSE 76; RESP 16; TEMP 98.1; O2SAT 100
[2017-09-26] MEDS: PROPRANOLOL HCL 10 MG TAB PO SCH ×3 (06:13→21:04)
[2017-09-26] MEDS: ATORVASTATIN 20 MG TAB PO SCH (09:00)
[2017-09-26] MEDS: NICOTINE 21 MG/24 HR PATCH T-DERMAL SCH (09:00)
[2017-09-26] MEDS: FERROUS SULFATE 325 MG (65 MG ELEMENTAL IRON) TAB PO SCH ×2 (09:41→20:39)
[2017-09-26] MEDS: ARIPiprazole 15 MG TAB PO SCH ×2 (09:41→20:39)
[2017-09-26] MEDS: PANTOPRAZOLE SOD 40 MG DELAYED RELEASE TAB PO SCH (09:43)
[2017-09-26] MEDS: ASCORBIC ACID 500 MG TAB PO SCH ×2 (09:46→20:38)
--- NOTE | 2017-09-26 12:49 | HHI.PYPN ---
Subjective Chief Complaint: Psychosis Remarks Patient was seen and case discussed with nursing. Patient is in good behavior on the unit. She is somewhat religiously preoccupied. Thought blocking has improved. Denies any auditory hallucinations. Tolerating her medications well. She denies suicidal or homicidal ideation intent or plan. Behaving well on the unit Mental Status Examination Appearance: Disheveled Consciousness: Alert, Vigilant Orientation: Person, Place (at least) Motor Activity: Normal gait, Other (no motor abnormalities noted) Speech: Unremarkable Language: Adequate, Other (Would not speak) Fund of Knowledge: Adequate, Poor Attention and Concentration: Adequate Memory: Impaired (psychosis interferes) Mood: Appropriate, Good Affect: Appropriate, Euthymic Thought Process & Associations: Intact, Logical Thought Content: Appropriate Hallucination Type: None, Other (responding to internal stimuli) Delusion Type: None, Paranoid Suicidal Ideation: No Suicidal Plan: No Suicidal Intention: No Homicidal Ideation: No Homicidal Plan: No Homicidal Intention: No Insight: Fair Judgment: Impulsive Results Labs Test 09/25/17 16:00 Blood Urea Nitrogen 7 MG/DL Creatinine 0.92 MG/DL Random Glucose 89 MG/DL Total Protein 8.7 GM/DL Albumin 3.8 GM/DL Calcium Level 9.6 MG/DL Alkaline Phosphatase 75 U/L Aspartate Amino Transf (AST/SGOT) 17 U/L Alanine Aminotransferase (ALT/SGPT) 25 U/L Total Bilirubin 0.2 MG/DL Sodium Level 143 MEQ/L Potassium Level 3.2 MEQ/L Chloride Level 108 MEQ/L Carbon Dioxide Level 28.4 MEQ/L Anion Gap 7 MEQ/L Estimat Glomerular Filtration Rate 89 ML/MIN Vitals/IOs Vital Signs Date Time Temp Pulse Resp B/P (MAP) Pulse Ox O2 Delivery O2 Flow Rate FiO2 09/26/17 05:50 98.1 76 16 115/59 (77) 100 Assessment & Plan Problem List: (1) Schizophrenia ICD Codes: F20.9 - Schizophrenia, unspecified Status: Acute Assessment & Plan Continue current treatment plan Justification for Cont. Inpt. Patient would decompensate in a less restrictive setting Request HC Surrog/Guard Advoc?: Yes Problem Qualifiers (1) Schizophrenia: Qualified Codes: F20.0 - Paranoid schizophrenia Maxwell Santamaria DO Sep 26, 2017 12:49
[2017-09-26 14:48] VITALS: BP 141/71; PULSE 81; RESP 18; TEMP 97.9; O2SAT 100
[2017-09-26] MEDS: QUEtiapine FUMARATE 100 MG TAB PO SCH (20:39)
[2017-09-26] MEDS: REMOVE OLD NICODERM (NICOTINE) PATCH T-DERMAL SCH (20:40)
[2017-09-27] MEDS: PROPRANOLOL HCL 10 MG TAB PO SCH ×3 (05:00→21:13)
[2017-09-27 05:17] VITALS: BP 100/60; PULSE 64; RESP 16; TEMP 97.8; O2SAT 97
[2017-09-27] MEDS: NICOTINE 21 MG/24 HR PATCH T-DERMAL SCH (09:00)
[2017-09-27] MEDS: PANTOPRAZOLE SOD 40 MG DELAYED RELEASE TAB PO SCH (10:39)
[2017-09-27] MEDS: ARIPiprazole 15 MG TAB PO SCH ×2 (10:40→21:13)
[2017-09-27] MEDS: ATORVASTATIN 20 MG TAB PO SCH (10:40)
[2017-09-27] MEDS: ASCORBIC ACID 500 MG TAB PO SCH ×2 (10:41→21:13)
[2017-09-27] MEDS: FERROUS SULFATE 325 MG (65 MG ELEMENTAL IRON) TAB PO SCH ×2 (10:42→21:12)
--- NOTE | 2017-09-27 12:43 | HHI.PYPN ---
Subjective Chief Complaint: Psychosis Remarks Patient was seen and case discussed with nursing. Thought blocking continues to improve. Patient is behaving well on the unit. Denies any psychotic symptoms. Continues to feel tired throughout the day but less so. Compliant with her medications and behaving well on the unit Mental Status Examination Appearance: Disheveled Consciousness: Alert, Vigilant Orientation: Person, Place (at least) Motor Activity: Normal gait, Other (no motor abnormalities noted) Speech: Unremarkable Language: Adequate, Other (Would not speak) Fund of Knowledge: Adequate, Poor Attention and Concentration: Adequate Memory: Impaired (psychosis interferes) Mood: Appropriate, Good Affect: Appropriate, Euthymic Thought Process & Associations: Intact, Logical Thought Content: Appropriate Hallucination Type: None, Other (responding to internal stimuli) Delusion Type: None, Paranoid Suicidal Ideation: No Suicidal Plan: No Suicidal Intention: No Homicidal Ideation: No Homicidal Plan: No Homicidal Intention: No Insight: Fair Judgment: Impulsive Results Vitals/IOs Vital Signs Date Time Temp Pulse Resp B/P (MAP) Pulse Ox O2 Delivery O2 Flow Rate FiO2 09/27/17 05:17 97.8 64 16 100/60 (73) 97 Intake and Output 09/27/17 09/27/17 09/28/17 08:00 16:00 00:00 Intake Total 480 ml Balance 480 ml Assessment & Plan Problem List: (1) Schizophrenia ICD Codes: F20.9 - Schizophrenia, unspecified Status: Acute Assessment & Plan Continue current treatment plan Justification for Cont. Inpt. Patient would decompensate in a less restrictive setting Request HC Surrog/Guard Advoc?: Yes Problem Qualifiers (1) Schizophrenia: Qualified Codes: F20.0 - Paranoid schizophrenia Maxwell Santamaria DO Sep 27, 2017 12:43
[2017-09-27 17:47] VITALS: BP 107/73; PULSE 77; RESP 16; TEMP 98; O2SAT 99
[2017-09-27 21:00] VITALS: BP 112/70; PULSE 64
[2017-09-27] MEDS: REMOVE OLD NICODERM (NICOTINE) PATCH T-DERMAL SCH (21:00)
[2017-09-27] MEDS: QUEtiapine FUMARATE 100 MG TAB PO SCH (21:13)
[2017-09-28] MEDS: PROPRANOLOL HCL 10 MG TAB PO SCH ×2 (06:00→14:23)
[2017-09-28 06:05] VITALS: BP 102/55; PULSE 63; RESP 16; TEMP 97.4; O2SAT 98
[2017-09-28] MEDS: NICOTINE 21 MG/24 HR PATCH T-DERMAL SCH (09:00)
[2017-09-28] MEDS: FERROUS SULFATE 325 MG (65 MG ELEMENTAL IRON) TAB PO SCH (09:52)
[2017-09-28] MEDS: ATORVASTATIN 20 MG TAB PO SCH (09:52)
[2017-09-28] MEDS: PANTOPRAZOLE SOD 40 MG DELAYED RELEASE TAB PO SCH (09:52)
[2017-09-28] MEDS: ASCORBIC ACID 500 MG TAB PO SCH (09:53)
[2017-09-28] MEDS: ARIPiprazole 15 MG TAB PO SCH (09:53)
[2017-09-28] MEDS ORDERED: ASCO500 PO (14:02)
[2017-09-28] MEDS ORDERED: ARIP1TAB13 PO (14:02)
[2017-09-28] MEDS ORDERED: PANT40TA3 PO (14:02)
[2017-09-28] MEDS ORDERED: FERR325T20 PO (14:02)
[2017-09-28] MEDS ORDERED: PROP10TA6 PO (14:02)
[2017-09-28] MEDS ORDERED: SERO200T PO (14:02)
[2017-09-28] MEDS ORDERED: ATOR20TA15 PO (14:02)
--- NOTE | 2017-09-28 14:07 | HHI.DS ---
Psychiatry Discharge Summary Inpatient Psychiatric care?: Yes Advance Directive: No Reason Not Provided: Due to Patient Condition Mental Health AdvanceDirective: No Health Care Proxy: No Admission Admission Date Sep 07, 2017 at 11:48 Admission Diagnosis: (1) Schizophrenia ICD Code: F20.9 - Schizophrenia, unspecified Brief History Ms. Mchugh is a 26-year-old female with a history of schizophrenia who was brought into the emergency department by family out of concern for medication nonadherence and decompensated psychosis. She was placed under a Hopkins act by the ED provider. She was seen in consultation by the psychiatric nurse practitioner in the ED. Documentation reviewed. Reviewing the electronic medical record, I see no previous psychiatric contact within our system. Patient seen and examined with nurse. Chart reviewed. Case discussed with nursing staff. On my examination today, the patient presents as disheveled. Speech is significantly delayed with obvious thought blocking. Eye contact is poor. She is paranoid and says that she does not want to give out too much information. She is evasive when I ask about SI/HI, saying "not really" and declining to elaborate when asked. Likewise, when I ask about AVH, she evades the question, noting "you're going to keep me longer." She appears frankly internally stimulated. Affect is quite flat. No reported depressive or hypomanic/manic symptoms. Psychiatric interview is limited because of decompensated psychotic illness. Patient is unable to provide any meaningful past psychiatric, family, chemical dependency or social history for the same reason. She does not verbalize any acute physical complaints. Given the patient's degree of psychiatric impairment, I did endeavor to obtain collateral from her father Cisco at the number listed in the EMR. He notes that he is not as well versed in patient's mental illness as his daughter Edith, patient's sister. He requests that I speak with Edith and defers HCS role to Edith. I tried several times to reach Edith at number listed in EMR, which father assures me is the right number. This number keeps ringing until it finally disconnects on its own. There is no opportunity to leave a voicemail. Tobacco Use In Past 30 Days: No Tobacco Past 30 Days Alcohol Use: Never Hospital Course Patient's hospital course was initially somewhat chaotic we psychosis was persistent with significant thought blocking distractibility questionable compliance medication. However with a gradual titration of the medications or paranoia auditory hallucinations and vigilance slowly subsided her compliance with medication improved her affect improved, she has better eye contact. We have also contacted the patient's father he also feels she is doing much better today. Patient is seen today she denies suicidality or homicidality voices or visions. At this time for patient reached maximum benefit of this hospitalization and she is to be discharged today to her father with follow-up through Siddhartha mckeon patient given 1 month supply of her medication Results Blood Pressure 102 / 55 Vital Signs Date Time Temp Pulse Resp B/P (MAP) Pulse Ox O2 Delivery O2 Flow Rate FiO2 09/28/17 06:05 97.4 63 16 102/55 (71) 98 Laboratory Tests Test 09/25/17 16:00 Total Protein 8.7 GM/DL (6.4-8.2) Potassium Level 3.2 MEQ/L (3.5-5.1) Chloride Level 108 MEQ/L (98-107) Laboratory Results Test 09/08/17 13:53 Cholesterol Level 210 MG/DL (120-200) HDL Cholesterol 65.5 MG/DL (40.0-60.0) Hemoglobin A1c 5.1 % (4.3-6.0) LDL Cholesterol 137 MG/DL (0-99) Triglycerides Level 39 MG/DL (42-150) Summary of Procedures None done Pending results at discharge: No Medications # of Antipsychotic meds at D/C: 2 Appropriate >1 Antipsych meds?: 2 (Recommend outpatient clinician consider tapering of either medication after patient has been stabilized for a sufficient period of time) Approp Antipsych med options 1 - Minimum of three failed multiple trials of monotherapy. 2 - Documented plan to taper to monotherapy due to previous use of multiple meds OR cross-taper in progress at D/C. 3 - Documentation of augmentation of Clozapine. 4 - Justification other than those listed in allowable values 1-3, document here : Discharge Discharge Date: Sep 28, 2017 Discharge Diagnosis: (1) Schizophrenia Diagnosis: Principal ICD Code: F20.9 - Schizophrenia, unspecified Status: Acute Pt Condition on Discharge: Stable Discharge Disposition: Discharge Home Discharge Instructions Diet Instructions: As Tolerated, No Restrictions Activities you can perform: Regular-No Restrictions Scheduled Appointment: Siddhartha Mckeon Appointment Time: 8 - 3 Discharge Time > 30 minutes Mental Status Examination Appearance: Disheveled Consciousness: Alert, Vigilant Orientation: Person, Place (at least) Motor Activity: Normal gait, Other (no motor abnormalities noted) Speech: Unremarkable Language: Adequate, Other (Would not speak) Fund of Knowledge: Adequate, Poor Attention and Concentration: Adequate Memory: Impaired (psychosis interferes) Mood: Appropriate, Good Affect: Appropriate, Euthymic Thought Process & Associations: Intact, Logical Thought Content: Appropriate Hallucination Type: None, Other (responding to internal stimuli) Delusion Type: None, Paranoid Suicidal Ideation: No Suicidal Plan: No Suicidal Intention: No Homicidal Ideation: No Homicidal Plan: No Homicidal Intention: No Insight: Fair Judgment: Impulsive Discharge/Advance Care Plan Health Problems: (1) Schizophrenia Goals to promote your health * To prevent worsening of your condition and complications * To maintain your health at the optimal level Directions to meet your goals Take your medications as prescribed Follow your dietary instruction Follow activity as directed Keep your appointments as scheduled Take your immunizations and boosters as scheduled If your symptoms worsen call your PCP, if no PCP go to Urgent Care Center or Emergency Room For 05/01 questions related to your inpatient stay or results of tests pending at discharge, please contact Dr. Luis Wolf at Smoking is Dangerous to Your Health. Avoid second hand smoking Problem Qualifiers (1) Schizophrenia: Qualified Codes: F20.0 - Paranoid schizophrenia Luis Wolf MD Sep 28, 2017 14:07
[2017-09-28 14:15] VITALS: BP 124/58; PULSE 70
== END 2017-09-28 16:00 | disposition home or self-care (01) | DRG 885 ==
LOC: NEPD 16:50 → NEDA 09-07 11:48 → H270 09-07 15:05 → H260 09-12 22:16
PROVIDERS: ADMIT Psychiatry & Neurology Psychiatry; ATTEND Psychiatry & Neurology Psychiatry
DX: F20.0 Paranoid schizophrenia (principal); Z91.14 Patient's other noncompliance with medication regimen; D50.9 Iron deficiency anemia, unspecified; E87.6 Hypokalemia; F94.0 Selective mutism; J45.909 Unspecified asthma, uncomplicated; R00.0 Tachycardia, unspecified; R03.0 Elevated blood-pressure reading, without diagnosis of hypertension; M79.606 Pain in leg, unspecified; R07.9 Chest pain, unspecified; R25.1 Tremor, unspecified
CPT/HCPCS: 80048; 80053; 80061; 80307; 81001; 82728; 83036; 83540; 83550; 83735; 84443; 84484; 84703; 85025; 93005; 99285; J1630; J1644; J2060; J2250; J3010; Q0163